=== PATIENT | male | born 1960 | race Caucasian/White ===

== ENCOUNTER 2018-08-08 09:09 | Emergency (ER) | payer SELFPAY ==
--- NOTE | 2018-08-08 10:37 | ER ---
Nurse's Notes [facility] Name: Saurav Kirkland Age: 57 yrs Sex: Male : 1960 Arrival Date: 08/08/2018 Time: 09:09 Bed 6 Private MD: Diagnosis: Presentation: 08/08 09:43 Presenting complaint: Bilateral hand numbness and tingling upon waking today. Pt hb reports mechanical fall down flight of stairs yesterday at 1800. VAN NEGATIVE. 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 Pt reports having approx 6 tall beers today, drinks a 12 pack of beer daily. Care prior to arrival: None. Mechanism of Injury: Fall. 09:43 Acuity: OLLIE 3 09:43 Method Of Arrival: Ambulatory 09:48 Trauma event details: Injury occurred in the [facility], Injury occurred: at home. Injury occurred: August 07, 2018 Injury occurred at: 18:00. Triage Assessment: 09:45 General: Appears in no apparent distress. comfortable, Behavior is cooperative, bp appropriate for age, anxious. Pain: Denies pain. EENT: No deficits noted. Neuro: Level of Consciousness is awake, alert, obeys commands, Oriented to person, place, time, situation, Appropriate for age Manufacturing Management Associate are equal bilaterally Reports TINGLING IN BILATERAL HANDS. Cardiovascular: No deficits noted. Respiratory: Airway is patent Respiratory effort is even, unlabored. GI: No signs and/or symptoms were reported involving the gastrointestinal system. : No signs and/or symptoms were reported regarding the genitourinary system. Derm: No deficits noted. Musculoskeletal: No deficits noted. Trauma Activation: Not Applicable Physician: ED Physician; Name: ; Notified At: ; Arrived At: Physician: General Surgeon; Name: ; Notified At: ; Arrived At: Physician: Radiology; Name: ; Notified At: ; Arrived At: Physician: Respiratory; Name: ; Notified At: ; Arrived At: Physician: Lab; Name: ; Notified At: ; Arrived At: Historical: - Allergies: 09:50 No Known Allergies; hb - Home Meds: 09:50 Metoprolol Tartrate Oral [Active]; Hydrochlorothiazide Oral [Active]; Lisinopril Oral hb [Active]; - PMHx: 09:50 Hypertension; CVA; hb - Immunization history:: Adult Immunizations up to date. - Social history:: Smoking status: Patient/guardian denies using tobacco. - Ebola Screening: : No symptoms or risks identified at this time. Screenin:50 Abuse screen: Denies threats or abuse. Denies injuries from another. Nutritional bp screening: No deficits noted. Tuberculosis screening: No symptoms or risk factors identified. Fall Risk Fall in past 12 months (25 points). Secondary diagnosis (15 points) CVA, No IV (0 pts). Ambulatory Aid- None/Bed Rest/Nurse Assist (0 pts). Gait- Normal/Bed Rest/Wheelchair (0 pts) Mental Status- Oriented to own ability (0 pts). Total Robbins Fall Scale indicates Low Risk Score (25-44 pts). Fall prevention measures have been instituted. Side Rails Up X 2 Placed close to Nursing Station Frequent Obs/Assesments occuring As available Patient and Family Educated on Fall Prevention Program and strategies. Assessment: 09:50 General: SEE TRIAGE NOTE. bp 10:34 Reassessment: PT ELOPED FROM FACILITY WITHOUT NOTIFYING STAFF AFTER SEEING PHYSICIAN. bp Vital Signs: 09:48 BP 159 / 93; Pulse 98; Resp 16; Temp 97.8; Pulse Ox 100% ; Weight 92.99 kg; Height 5 hb ft. 10 in. (177.80 cm); Pain 5/10; 10:25 BP 165 / 104; Pulse 88; Resp 16; Pulse Ox 96% ; bp 09:48 Body Mass Index 29.41 (92.99 kg, 177.80 cm) hb [place] Coma Score: 09:48 Eye Response: spontaneous(4). Verbal Response: oriented(5). Motor Response: obeys hb commands(6). Total: 15. Trauma Score (Adult): 09:48 Eye Response: spontaneous(1); Verbal Response: oriented(1); Motor Response: obeys hb commands(2); Systolic BP: > 89 mm Hg(4); Respiratory Rate: 10 to 29 per min(4); Herman Score: 15; Trauma Score: 12 ED Course: 09:09 Patient arrived in ED. as 09:45 Bhavin Richard MD is Attending Physician. kdr 09:48 Triage completed. hb 09:49 Arm band placed on. hb 09:50 Patient has correct armband on for positive identification. Bed in low position. Call bp light in reach. Side rails up X2. 09:51 Mart Ledezma, RN is Primary Nurse. bp 10:35 No provider procedures requiring assistance completed. Patient did not have IV access bp during this emergency room visit. Administered Medications: No medications were administered Outcome: 10:35 Eloped from patient exam room, after seeing physician Time discovered patient gone: bp August 08, 2018 at 10:35 10:36 Patient left the ED. bp Signatures: Bhavin Richard MD MD kdr Martinez, Amelia as Baxter, Heather, RN RN Mart Ledezma, RN RN bp
--- NOTE | 2018-08-09 10:37 | EDPHYS ---
Physician Documentation [facility] Name: Saurav Kirkland Age: 57 yrs Sex: Male : 1960 Arrival Date: 08/08/2018 Time: 09:09 Bed 6 Private MD: ED Physician Bhavin Richard HPI: 08/08 10:43 This 57 yrs old Male presents to ER via Ambulatory with complaints of Fall kdr Injury, Numbness Of Hand. 10:43 Details of fall: The patient fell from an upright position, while walking. Onset: The kdr symptoms/episode began/occurred gradually, 1 week(s) ago. Associated injuries: The patient sustained None - he fell and now feels that his hands are numb - more left than right. He has no other c/o. He did relate to the nursing staff that he had had six "tall boys" this morning prior to arrival. Severity of symptoms: At their worst the symptoms were very mild, in the emergency department the symptoms are unchanged. The patient has not experienced similar symptoms in the past. The patient has not recently seen a physician. Out of his medications - states he has no money to get them filled. Historical: - Allergies: 09:50 No Known Allergies; hb - Home Meds: 09:50 Metoprolol Tartrate Oral [Active]; Hydrochlorothiazide Oral [Active]; Lisinopril Oral hb [Active]; - PMHx: 09:50 Hypertension; CVA; hb - Immunization history:: Adult Immunizations up to date. - Social history:: Smoking status: Patient/guardian denies using tobacco. - Ebola Screening: : No symptoms or risks identified at this time. ROS: 10:43 Constitutional: Negative for fever, chills, and weight loss, Eyes: Negative for injury, kdr pain, redness, and discharge, ENT: Negative for injury, pain, and discharge, Neck: Negative for injury, pain, and swelling, Cardiovascular: Negative for chest pain, palpitations, and edema, Respiratory: Negative for shortness of breath, cough, wheezing, and pleuritic chest pain, Abdomen/GI: Negative for abdominal pain, nausea, vomiting, diarrhea, and constipation, Back: Negative for injury and pain, : Negative for injury, bleeding, discharge, and swelling, MS/Extremity: Negative for injury and deformity, Skin: Negative for injury, rash, and discoloration, Psych: Negative for depression, anxiety, suicide ideation, homicidal ideation, and hallucinations, Allergy/Immunology: Negative for hives, rash, and allergies, Endocrine: Negative for neck swelling, polydipsia, polyuria, polyphagia, and marked weight changes, Hematologic/Lymphatic: Negative for swollen nodes, abnormal bleeding, and unusual bruising. 10:43 Neuro: Positive for numbness, Negative for altered mental status, dizziness, gait disturbance, headache, hearing loss, loss of consciousness, seizure activity, speech changes, syncope, near syncope, tingling, tinnitus, tremor, visual changes, weakness. Exam: 10:43 Constitutional: This is a well developed, well nourished patient who is awake, alert, kdr and in no acute distress. Head/Face: Normocephalic, atraumatic. Eyes: Pupils equal round and reactive to light, extra-ocular motions intact. Lids and lashes normal. Conjunctiva and sclera are non-icteric and not injected. Cornea within normal limits. Periorbital areas with no swelling, redness, or edema. Neck: Trachea midline, no thyromegaly or masses palpated, and no cervical lymphadenopathy. Supple, full range of motion without nuchal rigidity, or vertebral point tenderness. No Meningismus. Chest/axilla: Normal chest wall appearance and motion. Nontender with no deformity. No lesions are appreciated. Cardiovascular: Regular rate and rhythm with a normal S1 and S2. No gallops, murmurs, or rubs. Normal PMI, no JVD. No pulse deficits. Respiratory: Lungs have equal breath sounds bilaterally, clear to auscultation and percussion. No rales, rhonchi or wheezes noted. No increased work of breathing, no retractions or nasal flaring. Abdomen/GI: Soft, non-tender, with normal bowel sounds. No distension or tympany. No guarding or rebound. No evidence of tenderness throughout. Back: No spinal tenderness. No costovertebral tenderness. Full range of motion. Skin: Warm, dry with normal turgor. Normal color with no rashes, no lesions, and no evidence of cellulitis. MS/ Extremity: Pulses equal, no cyanosis. Neurovascular intact. Full, normal range of motion. Neuro: Awake and alert, GCS 15, oriented to person, place, time, and situation. Cranial nerves II-XII grossly intact. Motor strength 5/5 in all extremities. Sensory grossly intact. Cerebellar exam normal. Normal gait. Psych: Awake, alert, with orientation to person, place and time. Behavior, mood, and affect are within normal limits. Vital Signs: 09:48 BP 159 / 93; Pulse 98; Resp 16; Temp 97.8; Pulse Ox 100% ; Weight 92.99 kg; Height 5 hb ft. 10 in. (177.80 cm); Pain 5/10; 10:25 BP 165 / 104; Pulse 88; Resp 16; Pulse Ox 96% ; bp 09:48 Body Mass Index 29.41 (92.99 kg, 177.80 cm) hb [place] Coma Score: 09:48 Eye Response: spontaneous(4). Verbal Response: oriented(5). Motor Response: obeys hb commands(6). Total: 15. Trauma Score (Adult): 09:48 Eye Response: spontaneous(1); Verbal Response: oriented(1); Motor Response: obeys hb commands(2); Systolic BP: > 89 mm Hg(4); Respiratory Rate: 10 to 29 per min(4); [place] Score: 15; Trauma Score: 12 MDM: 10:43 Data reviewed: vital signs, nurses notes. ED course: I asked the patient for his pill kdr bottles and took them to the desk to attempt to get him some of his medications for free or at reduced cost. While this was occurring, the patient eloped from the ED. Administered Medications: No medications were administered Disposition: 08/08/18 10:36 Patient left the facility after being seen by provider. - Patient left due to unknown. Signatures: Bhavin Richard MD MD [facility] Selina Mathur, RN RN Mart Ledezma, RN RN bp
== END 2018-08-08 10:36 | disposition left against medical advice (07) ==
LOC: ER 09:09
DX: R20.0 Anesthesia of skin (principal); I10 Essential (primary) hypertension; W19.XXXA Unspecified fall, initial encounter; Y93.89 Activity, other specified; Y92.9 Unspecified place or not applicable; Z86.73 Personal history of transient ischemic attack (TIA), and cerebral infarction without residual deficits
CPT/HCPCS: 99281

== ENCOUNTER 2018-08-14 07:43 | Emergency (ER) | payer SELFPAY ==
--- OUTSIDE RECORDS SUMMARY | 2018-08-14 07:48 | XMS REPORT | Continuity of Care Document ---
:1960 Author Organization Interface Problems Problem Status Onset Classification Date Comments Source Date Reported Open bite of 03/08/19 06/07/2017 [facility] oral cavity, Medical initial Center encounter TONGUE SWELLING Active 02/25/19 [place] [address] [facility] ANNY Active 02/25/19 [facility] BILLING 112 Medical Center HEMATOMA OF ORAL Active 02/25/19 [place] [address] [facility] Alcohol 06/07/2017 [facility] dependence with Medical withdrawal, Center unspecified Thrombocytopenia 06/07/2017 [facility] [place] Center Fatty liver, not 06/07/2017 [facility] elsewhere Medical classified Center Essential 06/07/2017 [facility] hypertension [facility] Center Obesity[facility]/07/2017 [facility] Body mass index 06/07/2017 [facility] 32.0-32.9, adult Medical Center Hypertensive 06/07/2017 [facility] urgency [facility] Center Alcoholism Resolved Problem 06/07/2017 [facility] Hypertension Resolved Problem 06/07/2017 [facility] CONTUSION OF Active [facility] ORAL CAVITY, [facility] INITIAL [facility] Center Medications Medication Details Route Status Patient Ordering Order Source Instructions Provider Date Chlordiazepoxide 25 mg, No Longer [place] Route: PO, Active [facility] Medical Q24H, Dosing Center Weight 104.091, kg, Start date: 03/02/17 3:00:00 PHOTO CARTOGRAPHER, Duration: 24 hr, Stop date: 03/02/17 3:00:00 PHOTO CARTOGRAPHER lisinopril 20 mg 20 mg=1 tab, Active [facility] oral tablet PO, Daily, # 2018 Medical 60 tab, 0 Center Refill(s) Aspirin 81 MG 81 mg, CHEW, Active [facility] Chewable Tablet Daily, # 90 2018 Medical tab, 0 Center Refill(s) Amoxicillin 875 MG 1 tab, PO, No Longer [facility] / Clavulanate 125 Q12H, # 6 Active 2017 Medical MG Oral Tablet tab, 0 Center [Augmentin 875-mg] Refill(s) NIFEdipine 60 mg 60 mg=1 tab, Active 01/11/ [facility] oral tablet, PO, Daily, # 2018 Medical extended release 60 tab, 0 Center Refill(s), Pharmacy: [place] [id number] NIFEdipine 60 mg 60 mg, 1 Inactive [place] oral tablet, tab, Route: 2018 Medical extended release PO, Drug Center form: ERTAB, Daily, Dosing Weight 107.1, kg, Start date: 03/01/17 9:00:00 PHOTO CARTOGRAPHER, Duration: 30 day, Stop date: 03/30/17 9:00:00 CSTNotes: (Same as: Adalat CC, Procardia XL) Give on empty stomach. Take 1 hour before or 2 hours after meal; "Avoid grapefruit and grapefruit juice". Do not crush Simethicone 80 mg, 1 Inactive [place] tab, Route: 2018 Medical CHEW, Drug Center form: CHEWTAB, TID, Dosing Weight 107.1, kg, PRN Gas, Start date: 03/01/17 8:15:00 PHOTO CARTOGRAPHER, Duration: 30 day, Stop date: 03/31/17 8:14:00 CSTNotes: (Same as: Mylicon) Chlordiazepoxide 50 mg, No Longer [place] Route: PO, Active 2018 Medical Q24H, Dosing Center Weight 104.091, kg, Start date: 03/01/17 3:00:00 PHOTO CARTOGRAPHER, Duration: 24 hr, Stop date: 03/01/17 3:00:00 PHOTO CARTOGRAPHER Tessalon Perles 100 mg, 1 No Longer [place] cap, Route: Active 2018 Medical PO, Drug Center form: CAP, TID, Dosing Weight 107.1, kg, PRN as needed for cough, Start date: 02/28/17 20:31:00 PHOTO CARTOGRAPHER, Duration: 30 day, Stop date: 03/30/17 20:30:00 CSTNotes: (Same As: Tessalon Perles) "Do Not Crush" Hydralazine 10 mg, 0.5 Inactive [place] mL, Route: 2018 Medical IVP, Drug Center form: INJ, ONCE, Dosing Weight 107.1, kg, Start date: 02/28/17 13:34:00 PHOTO CARTOGRAPHER, Stop date: 02/28/17 13:34:00 CSTNotes: (Same as: Apresoline) Push over 5 minutes NIFEdipine 30 mg 30 mg, 1 Inactive [place] oral tablet, tab, Route: 2018 Medical extended release PO, Drug Center form: ERTAB, ONCE, Dosing Weight 107.1, kg, Start date: 02/28/17 13:09:00 PHOTO CARTOGRAPHER, Stop date: 02/28/17 13:09:00 CSTNotes: (Same as: Adalat CC, Procardia XL) Give on empty stomach. Take 1 hour before or 2 hours after meal; "Avoid grapefruit and grapefruit juice". Do not crush Amoxicillin 875 MG 1 tab, No Longer [place] / Clavulanate 125 Route: PO, Active 2017 Medical MG Oral Tablet Drug Form: Center [Augmentin 875-mg] TAB, Dosing Weight 107.1, kg, Q12H, Start date: 02/28/17 12:00:00 PHOTO CARTOGRAPHER, Duration: 30 day, Stop date: 03/30/17 11:00:00 CSTNotes: With food. (Same as: Augmentin 875) NIFEdipine 30 mg 30 mg, 1 Inactive [place] oral tablet, tab, Route: 2018 Medical extended release PO, Drug Center form: ERTAB, Daily, Dosing Weight 107.1, kg, Start date: 02/28/17 12:00:00 PHOTO CARTOGRAPHER, Duration: 30 day, Stop date: 03/30/17 9:00:00 CSTNotes: (Same as: Adalat CC, Procardia XL) Give on empty stomach. Take 1 hour before or 2 hours after meal; "Avoid grapefruit and grapefruit juice". Do not crush tramadol 50 mg, 1 No Longer [place] hydrochloride 50 tab, Route: Active 2018 Medical MG Oral Tablet PO, Drug Center form: TAB, Q6H, Dosing Weight 107.1, kg, PRN Pain Score 4-6, Start date: 02/28/17 11:23:00 PHOTO CARTOGRAPHER, Duration: 30 day, Stop date: 03/30/17 11:22:00 CSTNotes: Not to exceed 400mg/day. (Same As: Ultram) Lorazepam 2 mg, 1 mL, No Longer [place] Route: IVP, Active 2017 Medical Drug form: Center INJ, Q2H, Dosing Weight 107.1, kg, PRN Withdrawal, Start date: 02/28/17 11:21:00 PHOTO CARTOGRAPHER, Duration: 30 day, Stop date: 03/30/17 11:20:00 CSTNotes: (Same as: Ativan) Folic Acid 1 mg, 1 tab, No Longer [place] Route: PO, Active 2017 Medical Drug form: Center TAB, Daily, Dosing Weight 107.1, kg, Start date: 02/28/17 9:00:00 PHOTO CARTOGRAPHER, Duration: 30 day, Stop date: 03/29/17 9:00:00 CSTNotes: (Same as: Folvite) Thiamine 100 mg, 1 No Longer [place] tab, Route: Active 2018 Medical PO, Drug Center form: TAB, Daily, Dosing Weight 107.1, kg, Start date: 02/28/17 9:00:00 PHOTO CARTOGRAPHER, Duration: 30 day, Stop date: 03/29/17 9:00:00 CSTNotes: (Same As: Vitamin B1) Chlordiazepoxide 50 mg, No Longer [place] Route: PO, Active 2017 Medical Q12H, Dosing Center Weight 104.091, kg, Start date: 02/28/17 9:00:00 PHOTO CARTOGRAPHER, Duration: 24 hr, Stop date: 02/28/17 21:00:00 PHOTO CARTOGRAPHER Lisinopril 20 mg, 1 No Longer [place] tab, Route: Active 2018 Medical PO, Drug Center form: TAB, Daily, Dosing Weight 107.1, kg, Start date: 02/28/17 6:43:00 PHOTO CARTOGRAPHER, Duration: 30 day, Stop date: 03/29/17 9:00:00 CSTNotes: (Same as: Prinivil, Zestril) Melatonin 6 mg, 2 tab, No Longer [place] Route: PO, Active 2017 Medical Drug form: Center TAB, Q24H, Dosing Weight 107.1, kg, Start date: 02/27/17 18:00:00 PHOTO CARTOGRAPHER, Duration: 30 day, Stop date: 03/28/17 18:00:00 CSTNotes: (Same as: Melatonin) Lisinopril 20 mg, Inactive [place] Route: PO, 2018 Medical Drug form: Center TAB, Daily, Dosing Weight 107.1, kg, Start date: 02/27/17 16:20:00 PHOTO CARTOGRAPHER, Duration: 30 day, Stop date: 03/29/17 9:00:00 PHOTO CARTOGRAPHER Valium 10 mg, 2 No Longer [facility] tab, Route: Active 2017 Medical PO, Drug Center form: TAB, Q8H-05, Dosing Weight 107.1, kg, Start date: 02/27/17 13:00:00 PHOTO CARTOGRAPHER, Duration: 3 day, Stop date: 03/02/17 5:00:00 CSTNotes: (Same as: Valium) metoprolol 25 mg, BID, No Longer [facility] tartrate 0 Refill(s) Active 2017 [facility] Aspirin 81 mg, 0 No Longer [facility] Refill(s) Active 2017 [facility] multivitamin with 1 tab, No Longer [place] minerals Route: PO, Active 2017 Medical Drug Form: Center TAB, Dosing Weight 107.1, kg, Daily, Start date: 02/27/17 12:19:00 PHOTO CARTOGRAPHER, Duration: 30 day, Stop date: 03/29/17 9:00:00 CSTNotes: (Same as:Thera-M, Theragran-M) WASTE: F/P - Black; E - Municipal Trash Bin Give with food. metoprolol 25 mg, 1 No Longer [facility] tartrate tab, Route: Active 2017 Medical PO, Drug Center form: TAB, Q12H, Dosing Weight 107.1, kg, Start date: 02/27/17 12:12:00 PHOTO CARTOGRAPHER, Duration: 30 day, Stop date: 03/29/17 9:00:00 CSTNotes: (Same as: Lopressor) Labetalol 10 mg, 2 mL, No Longer [facility] Route: IV, Active 2017 Medical Drug form: Center INJ, Q6H, Dosing Weight 107.1, kg, PRN Hypertension , Start date: 02/27/17 11:51:00 PHOTO CARTOGRAPHER, Duration: 30 day, Stop date: 03/29/17 11:50:00 PHOTO CARTOGRAPHER Lisinopril 20 mg, 1 Inactive [place] tab, Route: 2018 Medical PO, Drug Center form: TAB, Daily, Dosing Weight 107.1, kg, Start date: 02/27/17 11:51:00 PHOTO CARTOGRAPHER, Duration: 30 day, Stop date: 03/29/17 9:00:00 CSTNotes: (Same as: Prinivil, Zestril) Chlordiazepoxide 50 mg, No Longer [place] Route: PO, Active 2017 Medical Q8H, Dosing Center Weight 104.091, kg, Start date: 02/27/17 8:00:00 PHOTO CARTOGRAPHER, Duration: 24 hr, Stop date: 02/28/17 0:00:00 PHOTO CARTOGRAPHER Valium 10 mg, No Longer [place] Route: IVP, Active 2017 Medical Drug form: Center INJ, Q8Hnow, Dosing Weight 107.1, kg, Start date: 02/27/17 0:00:00 PHOTO CARTOGRAPHER, Duration: 30 day, Stop date: 03/28/17 16:00:00 PHOTO CARTOGRAPHER Vitamin B1 + 200 mg, 2 No Longer [place] Sodium Chloride mL, Route: Active 2017 Medical 0.9% IV 50 mL IVPB, Drug Center form: INJ, Q12H, Dosing Weight 107.1, kg, Start date: 02/26/17 21:00:00 PHOTO CARTOGRAPHER, Duration: 30 day, Stop date: 03/28/17 9:00:00 CSTNotes: (Same As: Vitamin B1) Ketamine 100 mg, 100 No Longer [place] mL, Rate: Active 2017 Medical Titrate, [place] Start Dose: 0.25 mg/kg/hr, Titration: DO NOT TITRATE, Goal(s): RASS 0, for alcohol withdrawal, Max Dose: 0.25 mg/kg/hr, Route: IV, Dosing Weight 107.1 kg, Total Volume: 100 For Analgesia, Start date: 02/26/17 19:01:00 CS...Notes: Total Concentratio n=1mg/ml Total Lwmand=[id number] Infusion Rate=Begin Infusion at an initial rate of 0.1mg/kg/hr to a Maximum Rate of 0.25mg/kg/hr Please place a Med Request 2 hours before the next dose is needed. Labetalol 5 mg, 1 mL, No Longer [place] Route: IVP, Active 2017 Medical Drug form: Center INJ, Q6H, Dosing Weight 107.1, kg, Start date: 02/26/17 18:00:00 PHOTO CARTOGRAPHER, Duration: 30 day, Stop date: 03/28/17 12:00:00 PHOTO CARTOGRAPHER Labetalol 5 mg, 1 mL, Inactive [facility] Route: IV, 2018 Medical Drug form: Center INJ, Q6H, Dosing Weight 107.1, kg, PRN Hypertension , Start date: 02/26/17 16:12:00 PHOTO CARTOGRAPHER, Duration: 30 day, Stop date: 03/28/17 16:11:00 PHOTO CARTOGRAPHER Valium 10 mg, 2 mL, No Longer [place] Route: IVP, Active 2018 Medical Drug form: Center INJ, Q8Hnow, Dosing Weight 107.1, kg, Start date: 02/26/17 16:00:00 PHOTO CARTOGRAPHER, Duration: 30 day, Stop date: 03/28/17 8:00:00 CSTNotes: (Same as: Valium) WASTE: F/P - Black; E - White/Blue Valium 5 mg, Route: Inactive [facility] IV, ONCE, 2018 Medical Dosing Center Weight 107.1, kg, Start date: 02/26/17 15:35:00 PHOTO CARTOGRAPHER, Stop date: 02/26/17 15:35:00 PHOTO CARTOGRAPHER Valium 5 mg, 1 mL, Inactive [facility] Route: IVP, 2018 Medical Drug form: Center INJ, Q8Hnow, Dosing Weight 107.1, kg, Start date: 02/26/17 15:00:00 PHOTO CARTOGRAPHER, Duration: 30 day, Stop date: 03/28/17 7:00:00 PHOTO CARTOGRAPHER Lorazepam 4 mg, Route: Inactive [facility] IV, ONCE, 2018 Medical Dosing Center Weight 107.1, kg, Start date: 02/26/17 14:23:00 PHOTO CARTOGRAPHER, Stop date: 02/26/17 14:23:00 PHOTO CARTOGRAPHER Thiamine 100 mg, Inactive [facility] Route: PO, 2018 Medical Daily, Center Dosing Weight 104.091, kg, Start date: 02/26/17 9:00:00 PHOTO CARTOGRAPHER, Duration: 5 day, Stop date: 03/02/17 9:00:00 PHOTO CARTOGRAPHER Folic Acid 1 mg, Route: Inactive [facility] PO, Daily, 2018 Medical Dosing Center Weight 104.091, kg, Start date: 02/26/17 9:00:00 PHOTO CARTOGRAPHER, Duration: 5 day, Stop date: 03/02/17 9:00:00 PHOTO CARTOGRAPHER multivitamin 1 tab, Inactive [facility] Route: PO, 2018 Medical Dosing Center Weight 104.091, kg, Daily, Start date: 02/26/17 9:00:00 PHOTO CARTOGRAPHER, Duration: 5 day, Stop date: 03/02/17 9:00:00 PHOTO CARTOGRAPHER Unasyn 1.5 gm, 1 No Longer [facility] ea, Route: Active 2017 Medical IVPB, Drug Center form: PDR/INJ, ABXQ6H, Dosing Weight 107.1, kg, Start date: 02/26/17 8:00:00 PHOTO CARTOGRAPHER, Duration: 3 day, Stop date: 03/01/17 2:00:00 CSTNotes: Dosing based on Ampicillin component (Same as: Unasyn) Dexamethasone 10 mg, 2.5 Inactive [facility] mL, Route: 2018 [facility] IV, Drug Center form: INJ, Q8H, Dosing Weight 107.1, kg, Start date: 02/26/17 8:00:00 PHOTO CARTOGRAPHER, Duration: 2 doses or times, Stop date: 02/26/17 16:00:00 CSTNotes: Concentratio n: 4mg/ml Chlordiazepoxide 50 mg, Inactive [facility] Route: PO, 2017 Medical Q6H, Dosing Center Weight 104.091, kg, Start date: 02/26/17 6:00:00 PHOTO CARTOGRAPHER, Duration: 24 hr, Stop date: 02/27/17 0:00:00 PHOTO CARTOGRAPHER Thiamine 100 mg, 1 Inactive [facility] mL, Route: 2017 Medical IVPB, Daily, Center Dosing Weight 107.1, kg, Start date: 02/26/17 4:14:00 PHOTO CARTOGRAPHER, Duration: 30 day, Stop date: 03/27/17 9:00:00 CSTNotes: (Same As: Vitamin B1) Folic Acid 1 mg, 0.2 No Longer [facility] mL, Route: Active 2017 Medical IVPB, Daily, Center Dosing Weight 107.1, kg, Start date: 02/26/17 4:13:00 PHOTO CARTOGRAPHER, Duration: 30 day, Stop date: 03/27/17 9:00:00 CSTNotes: (Same as: Folvite) Labetalol 20 mg, Inactive [facility] Route: IV, 2018 Medical Q4H, Dosing Center Weight 107.1, kg, Start date: 02/26/17 2:59:00 PHOTO CARTOGRAPHER, Duration: 30 day, Stop date: 03/28/17 0:00:00 PHOTO CARTOGRAPHER Lorazepam 0.5 mg, 1 No Longer [place] tab, Route: Active 2017 Medical PO, Drug Center form: TAB, Q6H, Dosing Weight 104.091, kg, PRN Agitation, Start date: 02/26/17 2:05:00 PHOTO CARTOGRAPHER, Duration: 30 day, Stop date: 03/28/17 2:04:00 CSTNotes: (Same as: Ativan) Hydralazine 10 mg, Inactive [facility] Route: IV, 2017 Medical Q6H, Dosing Center Weight 104.091, kg, PRN Hypertension , Start date: 02/26/17 1:56:00 PHOTO CARTOGRAPHER, Duration: 30 day, Stop date: 03/28/17 1:55:00 PHOTO CARTOGRAPHER Lorazepam 4 mg, 2 mL, No Longer [place] Route: IVP, Active 2017 Medical Drug form: Center INJ, Q2H, Dosing Weight 104.091, kg, PRN Other -See Comment, CIWA Score 15-20, Start date: 02/26/17 1:54:00 PHOTO CARTOGRAPHER, Duration: 30 day, Stop date: 03/28/17 1:53:00 CSTNotes: (Same as: Ativan) Labetalol 20 mg, 4 mL, Inactive [facility] Route: IVP, 2017 Medical Drug form: Center INJ, ONCE, Dosing Weight 104.091, kg, Priority: STAT, Start date: 02/26/17 0:24:00 PHOTO CARTOGRAPHER, Stop date: 02/26/17 0:24:00 PHOTO CARTOGRAPHER Dexamethasone 10 mg, 2.5 Inactive [facility] mL, Route: 2018 Medical IVP, Drug Center form: INJ, ONCE, Dosing Weight 104.091, kg, Priority: STAT, Start date: 02/26/17 0:18:00 PHOTO CARTOGRAPHER, Stop date: 02/26/17 0:18:00 CSTNotes: Concentratio n: 4mg/ml Unasyn 1.5 gm, 1 No Longer [place] ea, Route: Active 2017 Medical IVPB, Drug Center form: PDR/INJ, ONCE, Dosing Weight 104.091, kg, Priority: STAT, Start date: 02/25/17 23:50:00 PHOTO CARTOGRAPHER, Stop date: 02/25/17 23:50:00 CSTNotes: Dosing based on Ampicillin component (Same as: Unasyn) Morphine 4 mg, 1 mL, No Longer [place] Route: IVP, Active 2018 Medical Drug form: Center SOLN, ONCE, Dosing Weight 104.091, kg, Priority: STAT, Start date: 02/25/17 23:50:00 PHOTO CARTOGRAPHER, Stop date: 02/25/17 23:50:00 CSTNotes: (Same as:MORPhine Sulfate) Ondansetron 4 mg, 2 mL, Inactive [place] Route: IVP, 2017 Medical Drug form: Center INJ, ONCE, Dosing Weight 104.091, kg, Priority: STAT, Start date: 02/25/17 21:43:00 PHOTO CARTOGRAPHER, Stop date: 02/25/17 21:43:00 CSTNotes: (Same as: Zofran) MEDICATION WASTE Product Size: 4 mg Product Wasted: 0 mg Lorazepam 1 mg, 0.5 No Longer [place] mL, Route: Active 2018 Medical IVP, Drug Center form: INJ, ONCE, Dosing Weight 104.091, kg, Priority: STAT, Start date: 02/25/17 21:42:00 PHOTO CARTOGRAPHER, Stop date: 02/25/17 21:42:00 CSTNotes: (Same as: Ativan) Morphine 2 mg, 0.5 Inactive [facility] mL, Route: 2018 Medical IVP, Drug Center form: SOLN, ONCE, Dosing Weight 104.091, kg, Priority: STAT, Start date: 02/25/17 21:42:00 PHOTO CARTOGRAPHER, Stop date: 02/25/17 21:42:00 CSTNotes: (Same as:MORPhine Sulfate) Zofran 4 mg, 2 mL, Inactive [facility] Route: IVP, 2018 Medical Drug form: Center INJ, ONCE, Dosing Weight 104.091, kg, Priority: STAT, Start date: 02/25/17 19:30:00 PHOTO CARTOGRAPHER, Stop date: 02/25/17 19:30:00 CSTNotes: (Same as: Zofran) MEDICATION WASTE Product Size: 4 mg Product Wasted: ___ mg Saline Flush 0.9% 10 mL, No Longer [facility] Route: IVP, Active 2017 Medical Drug Form: Center INJ, Dosing Weight 104.091, kg, PRN, PRN Line Flush, Start date: 02/25/17 19:27:00 PHOTO CARTOGRAPHER, Duration: 30 day, Stop date: 03/27/17 19:26:00 CSTNotes: (Same as: BD Posiflush) Allergies, Adverse Reactions, Alerts Substance Category Reaction Severity Reaction Status Date Comments Source type Reported Immunizations Immunization Date Given Site Status Last Updated Comments Source Results Order Name Results Value Reference Date Interpretation Comments Source Range CHEM PANEL Phosphorus 4.1 mg/dL 2.5 - 4.5 03/[address] CHEM PANEL Magnesium Lvl 2.2 mg/dL 1.8 - 2.4 03/[address] ELECTROLYTE AGAP 14.5 meq/L 10.0 - 03/01 [facility] 20.0 [facility] ELECTROLYTE eGFR 106 03/01 Result Comment: The eGFR is calculated using the CKD-EPI formula. In most young, healthy individuals the eGFR will be > 90 mL/min/1.73m2. The eGFR declines with age. An eGFR of 60-89 may be normal in [facility] mL/min/1.7 some populations, particularly the elderly, for whom the CKD-EPI formula has not been extensively validated. Use of the eGFR is not recommended in the following populations: [address] Individuals with unstable creatinine concentrations, including patients and those with serious co-morbid conditions. Patients with extremes in muscle mass or diet. The data above are obtained from the National Kidney Disease Education Program (NKDEP) which additionally recommends that when the eGFR is used in patients with extremes of body mass index for purposes of drug dosing, the eGFR should be multiplied by the estimated BMI. ELECTROLYTE Calcium Lvl 9.2 mg/dL 8.5 - 10.5 03/01 [facility] [address] [place] [address] ELECTROLYTE Glucose Lvl 77 mg/dL 70 - 99 03/[address] ELECTROLYTE BUN 18 mg/dL 7 - 22 03/[address] ELECTROLYTE Creatinine 0.71 mg/dL 0.50 - 03/01 [facility] S Lvl 1.40 /2017 [facility] ELECTROLYTE Sodium Lvl 141 meq/L 135 - 145 03/[address] ELECTROLYTE Potassium Lvl 3.5 meq/L 3.5 - 5.1 03/[address] ELECTROLYTE CO2 25 meq/L 24 - 32 03/[address] ELECTROLYTE Chloride Lvl 105 meq/L 95 - 109 03/[address] HEMATOLOGY WBC 5.9 K/CMM 3.7 - 10.4 03/[address] HEMATOLOGY Hgb 15.2 g/dL 14.0 - 03/01 [facility] 18.0 [facility] HEMATOLOGY RBC 4.60 M/CMM 4.70 - 03/01 [facility] 6.10 [facility] HEMATOLOGY Platelet 67 K/CMM 133 - 450 03/[address] HEMATOLOGY MPV 9.9 fL 7.4 - 10.4 03/[address] HEMATOLOGY RDW 14.3 % 11.5 - 03/01 [facility] 14.5 [facility] HEMATOLOGY MCV 97.7 fL 80.0 - 03/01 [facility] 94.0 [facility] HEMATOLOGY Hct 44.9 % 42.0 - 03/01 [facility] 54.0 [facility] HEMATOLOGY MCHC 33.9 g/dL 32.0 - 03/01 [facility] 36.0 [facility] HEMATOLOGY MCH 33.2 pg 27.0 - 03/01 [facility] 31.0 [facility] HEMATOLOGY Basophils 0.1 % 0.0 - 1.0 03/[address] HEMATOLOGY Segs-Bands # 4.1 K/CMM 1.5 - 8.1 03/[address] HEMATOLOGY Eosinophils 0.9 % 0.0 - 4.0 03/[address] HEMATOLOGY Monocytes 12.8 % 2.0 - 12.0 03/[address] HEMATOLOGY Eosinophils # 0.1 K/CMM 0.0 - 0.5 03/[address] HEMATOLOGY Lymphocytes # 1.0 K/CMM 1.0 - 5.5 03/[address] HEMATOLOGY Monocytes # 0.7 K/CMM 0.0 - 0.8 03/[address] HEMATOLOGY Lymphocytes 16.4 % 20.0 - 03/01 [facility] 40.0 [facility] HEMATOLOGY Segs 69.8 % 45.0 - 03/01 [facility] 75.0 [facility] PARATHYROID Ca Ion WB 1.17 1.05 - 03/01 [facility] PROFILE mMol/L 1. [facility] PARATHYROID Ca Norm WB 1.16 1.05 - 03/01 [facility] PROFILE mMol/L 1. [facility] CHEM PANEL Bili Total 0.9 mg/dL 0.2 - 1.3 02/[address] CHEM PANEL Alk Phos 55 unit/L 39 - 136 02/[address] CHEM PANEL Albumin Lvl 2.9 g/dL 3.5 - 5.0 02/[address] CHEM PANEL Total Protein 6.8 g/dL 6.4 - 8.4 02/[address] CHEM PANEL ALT 70 unit/L 0 - 65 02/[address] CHEM PANEL AST 86 unit/L 0 - 37 02/[address] CHEM PANEL Bili Direct 0.1 mg/dL 0.0 - 0.3 02/[address] CHEM PANEL Bili Indirect 0.8 mg/dL 0.0 - 1.0 02/[address] CHEM PANEL A/G Ratio 0.7 0.7 - 1.6 02/[address] CHEM PANEL Globulin 3.9 g/dL 2.7 - 4.2 02/[address] CHEM PANEL Magnesium Lvl 2.4 mg/dL 1.8 - 2.4 02/[address] CHEM PANEL Phosphorus 4.1 mg/dL 2.5 - 4.5 02/[address] CHEM PANEL eGFR 99 02/28 Result Comment: The eGFR is calculated using the CKD-EPI formula. In most young, healthy individuals the eGFR will be >90 mL/ min/1.73m2. The eGFR declines with age. An eGFR of 60-89 may be normal in [facility] mL/min/1.7 some populations, particularly the elderly, for whom the CKD-EPI formula has not been extensively validated. Use of the eGFR is not recommended in the following populations: [address] Individuals with unstable creatinine concentrations, including patients and those with serious co-morbid conditions. Patients with extremes in muscle mass or diet. The data above are obtained from the National Kidney Disease Education Program (NKDEP) which additionally recommends that when the eGFR is used in patients with extremes of body mass index for purposes of drug dosing, the eGFR should be multiplied by the estimated BMI. CHEM PANEL Calcium Lvl 9.0 mg/dL 8.5 - 10.5 02/28 [facility] CHEM PANEL Sodium Lvl 145 meq/L 135 - 145 02/[address] CHEM PANEL AGAP 13.9 meq/L 10.0 - 02/28 20.0 [facility] CHEM PANEL Potassium Lvl 3.9 meq/L 3.5 - 5.1 02/[address] CHEM PANEL Chloride Lvl 110 meq/L 95 - 109 02/[address] CHEM PANEL CO2 25 meq/L 24 - 32 02/[address] CHEM PANEL Creatinine 0.85 mg/dL 0.50 - 02/28 [facility] Lvl 1.40 [facility] CHEM PANEL Glucose Lvl 92 mg/dL 70 - 99 02/[address] CHEM PANEL BUN 25 mg/dL 7 - 22 02/[address] HEMATOLOGY MPV 9.9 fL 7.4 - 10.4 02/[address] HEMATOLOGY Platelet 67 K/CMM 133 - 450 02/[address] HEMATOLOGY MCHC 33.8 g/dL 32.0 - 02/28 36.0 [facility] HEMATOLOGY MCH 33.0 pg 27.0 - 02/28 31.0 [facility] HEMATOLOGY RDW 14.1 % 11.5 - 02/28 14.5 [facility] HEMATOLOGY MCV 97.6 fL 80.0 - 02/28 94.0 [facility] HEMATOLOGY Hct 43.4 % 42.0 - 02/28 54.0 [facility] HEMATOLOGY Hgb 14.7 g/dL 14.0 - 02/28 [place] 18.0 [facility] HEMATOLOGY RBC 4.45 M/CMM 4.70 - 02/28 [place] 6.10 [facility] HEMATOLOGY WBC 7.9 K/CMM 3.7 - 10.4 02/28 2017 [facility] HEMATOLOGY Monocytes # 0.7 K/CMM 0.0 - 0.8 02/28 [facility]2017 [facility] HEMATOLOGY Monocytes 9.0 % 2.0 - 12.0 02/[address] HEMATOLOGY Segs-Bands # 6.7 K/CMM 1.5 - 8.1 02/[address] HEMATOLOGY Lymphocytes # 0.6 K/CMM 1.0 - 5.5 02/[address] HEMATOLOGY Lymphocytes 7.2 % 20.0 - 02/28 [place] 40.0 [facility] HEMATOLOGY Segs 83.8 % 45.0 - 02/28 [facility] 75.0 [facility] PARATHYROID Ca Norm WB 1.18 1.05 - 02/28 [facility] PROFILE mMol/L 1. [facility] PARATHYROID Ca Ion WB 1.16 1. - 02/28 [facility] PROFILE mMol/L 1. [facility] SPECIAL Hgb A1C 4.8 % <=5.6 % 02/28 [facility] [address] [place] [address] CHEM PANEL Magnesium Lvl 3.2 mg/dL 1.8 - 2.4 02/[address] CHEM PANEL eGFR 94 02/27 Result Comment: The eGFR is calculated using the CKD-EPI formula. In most young, healthy individuals the eGFR will be >90 mL/ min/1.73m2. The eGFR declines with age. An eGFR of 60-89 may be normal in [facility] mL/min/1. some populations, particularly the elderly, for whom the CKD-EPI formula has not been extensively validated. Use of the eGFR is not recommended in the following populations: [address] Individuals with unstable creatinine concentrations, including patients and those with serious co-morbid conditions. Patients with extremes in muscle mass or diet. The data above are obtained from the National Kidney Disease Education Program (NKDEP) which additionally recommends that when the eGFR is used in patients with extremes of body mass index for purposes of drug dosing, the eGFR should be multiplied by the estimated BMI. CHEM PANEL Sodium Lvl 144 meq/L 135 - 145 02/[address] CHEM PANEL Creatinine 0.92 mg/dL 0.50 - 02/27 [facility] Lvl 1.40 /2017 [facility] CHEM PANEL Chloride Lvl 111 meq/L 95 - 109 02/[address] CHEM PANEL Potassium Lvl 4.1 meq/L 3.5 - 5.1 02/[address] CHEM PANEL Calcium Lvl 10.0 mg/dL 8.5 - 10.5 02/[address] CHEM PANEL CO2 21 meq/L 24 - 32 02/[address] CHEM PANEL Glucose Lvl 138 mg/dL 70 - 99 02/[address] CHEM PANEL BUN 22 mg/dL 7 - 22 02/[address] CHEM PANEL AGAP 16.1 meq/L 10.0 - 02/27 [facility] 20.0 [facility] CHEM PANEL Phosphorus 3.6 mg/dL 2.5 - 4.5 02/[address] HEMATOLOGY Platelet 74 K/CMM 133 - 450 02/[address] HEMATOLOGY MCHC 33.8 g/dL 32.0 - 02/27 [facility] 36.0 [facility] HEMATOLOGY MPV 9.9 fL 7.4 - 10.4 02/[address] HEMATOLOGY RDW 14.1 % 11.5 - 02/27 [facility] 14.5 [facility] HEMATOLOGY MCH 32.9 pg 27.0 - 02/27 [facility] 31.0 [facility] HEMATOLOGY WBC 11.1 K/CMM 3.7 - 10.4 02/[address] HEMATOLOGY Hct 45.5 % 42.0 - 02/27 [facility] 54.0 [facility] HEMATOLOGY RBC 4.68 M/CMM 4.70 - 02/27 [place] 6.10 [facility] HEMATOLOGY MCV 97.2 fL 80.0 - 02/27 [facility] 94.0 [facility] HEMATOLOGY Hgb 15.4 g/dL 14.0 - 02/27 18.0 [facility] HEMATOLOGY Lymphocytes # 0.2 K/CMM 1.0 - 5.5 02/[address] HEMATOLOGY Segs-Bands # 9.9 K/CMM 1.5 - 8.1 02/[address] HEMATOLOGY Basophils 0.1 % 0.0 - 1.0 02/[address] HEMATOLOGY Monocytes # 0.9 K/CMM 0.0 - 0.8 02/27 [facility] HEMATOLOGY Monocytes 8.1 % 2.0 - 12.0 02/27 [facility]2017 [facility] HEMATOLOGY Lymphocytes 2.1 % 20.0 - 02/27 [facility] 40.0 [facility] HEMATOLOGY Segs 89.7 % 45.0 - 02/27 [facility] 75.0 [facility] PARATHYROID Ca Ion WB 1.08 1. - 02/27 [facility] PROFILE mMol/L 1. [facility] PARATHYROID Ca Norm WB 1.12 1.05 - 02/27 [facility] PROFILE mMol/L 1. [facility] Liver US Liver US EXAM: US LIVER LIMITED 02/26 - - [facility] This report was dictated by a Powerhouse Mechanic/Fellow. I have personally reviewed the images as Center well as the Resident's interpretation and agree with the findings. DATE: 02/26/2017 11:14 AM PHOTO CARTOGRAPHER Read by: Tabitha Gurerero MD Resident: Tabitha Guerrero MD Dictated Date/time: 02/26/17 14:55 Electronically Signed by: Jeovanny Leung MD 02/26/17 15:37 FINAL REPORT INDICATION: Elevated LFTs ADDITIONAL INFORMATION: None. COMPARISON: None. TECHNIQUE: Multiplanar grayscale and color Doppler ultrasound of the liver. FINDINGS: Liver: Craniocaudal length: 18.5 cm. Echogenicity: Hyperechoic Surface: Normal. Mass (size and location): There is a simple cystic lesion seen in the left hepatic lobe which measures 5.0 x 4.7 x 4.5 cm. Main portal vein: Caliber: 1.0 cm. Flow: Hepatopetal. Bile ducts: Common bile duct diameter: 0.38 cm. Intrahepatic ducts: Normal. Gallbladder: There is a small polyp seen along the gallbladder wall which measures 0.7 x 0.4 x 0.4 cm. Gallstones: None. Gallbladder sludge: None. Gallbladder wall: 0.24 cm. Pericholecystic fluid: None Sonographic Bernard sign: Absent. Pancreas: Head and uncinate process: Not seen. Body: Normal. Tail: Not seen. Spleen: The spleen measures 11.0 x 3.1 x 4.0 cm with no focal lesion. Free fluid: None. Other: None. IMPRESSION: 1. Hepatic steatosis. 2. Simple cystic lesion in the left hepatic lobe measuring up to 5.0 cm. 3. Small polyp in the gallbladder measuring up to 0.7 cm. ANEMIA Vitamin B12 505 pg/mL 254 - 1320 02/26 [facility] STUDY [address] [place] [address] CHEM PANEL Lactic Acid 1.4 mMol/L 0.5 - 2.2 02/26 [facility] [place] [facility] [address] [place] [address] CHEM PANEL Procalcitonin 0.47 ng/mL 0.00 - 02/26 [facility] 0.[address] [place] [address] CHEM PANEL B/C Ratio 9 6 - 25 02/[address] CHEM PANEL Globulin 3.8 g/dL 2.7 - 4.2 02/[address] CHEM PANEL A/G Ratio 1.0 0.7 - 1.6 02/[address] CHEM PANEL ALT 70 unit/L 0 - 65 02/[address] CHEM PANEL Albumin Lvl 3.7 g/dL 3.5 - 5.0 02/[address] CHEM PANEL AST 80 unit/L 0 - 37 02/[address] CHEM PANEL Total Protein 7.5 g/dL 6.4 - 8.4 02/[address] CHEM PANEL Alk Phos 74 unit/L 39 - 136 02/[address] CHEM PANEL Bili Total 1.1 mg/dL 0.2 - 1.3 02/[address] HEMATOLOGY TEG Interp Thrombelas 02/26 [facility] results [place] show shortened value of R. This finding is suggestive of enzymatic hypercoagu lation.CPT :78313 HEMATOLOGY K-time 2.9 min 1.0 - 3.0 02/[address] HEMATOLOGY R-time 4.1 min 5.0 - 10.0 02/[address] HEMATOLOGY TEG Data See Note 02/[address] (02/26/17 2:34 AM) [place] HEMATOLOGY Coag Index -0.9 -3.0-3.0 - 02/26 [facility] 3.0 [facility] HEMATOLOGY Ly30 0.1 % 0.0 - 7.5 02/26 [facility] HEMATOLOGY G-value 5.2 K d/sc 4.5 - 11.0 02/26 [facility] HEMATOLOGY Max Amp 51.1 mm 50.0 - 02/26 [place] 70.0 [facility] HEMATOLOGY Angle 58.0 53.0 - 02/26 [facility] degrees 72.0 [facility] TOXICOLOGY Ethanol Lvl null 02/26 [facility] TOXICOLOGY Etoh (%) null 02/26 [facility] CARDIAC Troponin-I 0.32 ng/mL 0.00 - 02/26 [facility] ENZYMES 0.40 [facility] BLOOD BANK Antibody Scrn Positive 1 02/26 Result Comment: 02/25/2017 20 :58 [id number] [facility] "Significant Findings of Positive Antibody Screen called to Shalini Gomez at 2054 by tl. 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 This antibody is directed against the S antigen of the "MNS" blood group system. It is typically IgG in nature and forms in response to RBC sensitizat ion via prior transfusio n. It is considered a clinically significan t antibody associated with transfusio n reactions. Should the patient require RBC transfusio n, crossmatch compatible units negative for the S antigen will be issued. Moderate difficulty in obtaining compatible blood is anticipate d since 45% of the donor population lacks the S antigen.Th e patients electronic medical record has been reviewed for relevant informatio n.I have reviewed the test results and concur with the resident's , Dr. Olmedo, interpreta tion.CPT: 93670-LO CARDIAC Troponin-I 0.40 ng/mL 0.00 - 02/26 [facility] ENZYMES 0.40 [facility] CHEM PANEL Globulin 4.3 g/dL 2.7 - 4.2 02/[address] CHEM PANEL A/G Ratio 0.9 0.7 - 1.6 02/[address] CHEM PANEL AST 120 unit/L 0 - 37 02/[address] CHEM PANEL Albumin Lvl 3.8 g/dL 3.5 - 5.0 02/[address] CHEM PANEL ALT 85 unit/L 0 - 65 02/[address] CHEM PANEL Alk Phos 83 unit/L 39 - 136 02/[address] CHEM PANEL Bili Total 1.3 mg/dL 0.2 - 1.3 02/[address] CHEM PANEL Bili Direct 0.1 mg/dL 0.0 - 0.3 02/[address] CHEM PANEL Bili Indirect 1.2 mg/dL 0.0 - 1.0 02/[address] CHEM PANEL Total Protein 8.1 g/dL 6.4 - 8.4 02/[address] HEMATOLOGY INR 0.93 0.85 - 02/26 [facility] 1.17 [facility] HEMATOLOGY PT 12.5 s 12.0 - 02/26 [facility] 14.7 [facility] HEMATOLOGY PTT 26.0 s 22.9 - 02/26 [facility] 35.8 [facility] HEMATOLOGY Basophils 0.1 % 0.0 - 1.0 02/[address] HEMATOLOGY Toxic Gran slight 02/[address] HEMATOLOGY Large Plt slight 02/[address] HEMATOLOGY RBC Morph Normal 02/[address] [place] [address] (02/25/17 7:34 PM) [place] Chest 1view Chest 1view EXAM: XR CHEST 1 VIEW 02/25 - [facility] DX DX - [facility] This report was dictated by a Powerhouse Mechanic/Fellow. I have personally reviewed the images as Center well as the Resident's interpretation and agree with the findings. DATE: 02/25/2017 7:27 PM PHOTO CARTOGRAPHER Read by: Katie Davis MD Resident: Katie Davis MD Dictated Date/time: 02/25/17 19:57 Electronically Signed by: Jefferson Palacios 02/25/17 20:09 FINAL REPORT INDICATION: - chest pain COMPARISON: Chest radiograph 02/25/2017 at 1714 TECHNIQUE: AP chest FINDINGS: Lines, tubes and hardware: None. Lungs and pleura: The inspiratory volumes are small which accounts for vascular crowding and bibasilar subsegmental atelectasis. No focal consolidation. Heart and mediastinum: The heart size is enlarged but unchanged. The mediastinal contours are normal. Bones: No acute bony abnormality is identified. IMPRESSION: Low lung volumes with vascular crowding and bibasilar subsegmental atelectasis. [place] SECTION: ER Vital Signs Vital Sign Value Date Comments Source Systolic (mm Hg) 146 03/01/2017 [facility] Diastolic (mm Hg) 93 03/01/2017 [facility] Respitory Rate 27 03/01/2017 [facility] Temperature Oral (F) 98.9 F 03/01/2017 [facility] Respitory Rate 22 03/01/2017 [facility] Systolic (mm Hg) 179 03/01/2017 [facility] Diastolic (mm Hg) 94 03/01/2017 [facility] Systolic (mm Hg) 146 03/01/2017 [facility] Diastolic (mm Hg) 81 03/01/2017 [facility] Respitory Rate 17 03/01/2017 [facility] Temperature Oral (F) 98.7 F 03/01/2017 [facility] Temperature Oral (F) 98.2 F 03/01/2017 [facility] Weight 107.1 02/26/2017 [facility] Heart Rate 79 02/26/2017 [facility] BMI Calculated 32.93 02/26/2017 [facility] Height 177.8 cm 02/26/2017 [facility] Weight 104.091 02/26/2017 [facility] Heart Rate 76 02/26/2017 [facility] Encounters Location Location Encounter Encounter Reason Attending ADM DC Status Source Details Type Number For Provider Date Date Visit [id number] [facility] Procedures Procedure Code Date Perfomer Comments Source Procedure on [id number] [place] [facility]
--- OUTSIDE RECORDS SUMMARY | 2018-08-14 07:49 | XMS REPORT | Summary of Care ---
:1960 Author Organization [facility] Address [address] [place] [id number] Encounter HQ Carol(FIN) [id number] Date(s): 02/25/17 - 03/01/[address] Professional Services provided by [facility] [place] [address]- Encounter Diagnosis Open bite of oral cavity, initial encounter (Final) - 03/07/17 Alcohol dependence with withdrawal, unspecified (Final) - Thrombocytopenia, unspecified (Final) - Fatty (change of) liver, not elsewhere classified (Final) - Essential (primary) hypertension (Final) - Obesity, unspecified (Final) - Body mass index (BMI) 32.0-32.9, adult (Final) - Hypertensive urgency (Final) - Discharge Disposition: Home or Self Care Attending Physician: Tri Dumont DO Admitting Physician: Sunitha Odonnell MD Referring Physician: Donald Vega MD Vital Signs Most recent to oldest 1 2 3 [Reference Range]: Height 177.8 cm (02/25/17 7:02 PM) Temperature Oral [96.4-99.1 98.9 DegF 98.7 DegF 98.2 DegF DegF] (03/01/17 3:26 PM) (03/01/17 11:09 AM) (03/01/17 7:37 AM) Blood Pressure [90-140/60-90 146/93 mmHg 179/94 mmHg 146/81 mmHg mmHg] *HI* *HI* *HI* (03/01/17 4:15 PM) (03/01/17 3:00 PM) (03/01/17 2:00 PM) Respiratory Rate [14-20 BRMIN] 27 BRMIN 22 BRMIN 17 BRMIN *HI* *HI* (03/01/17 2:00 PM) (03/01/17 4:15 PM) (03/01/17 3:00 PM) Peripheral Pulse Rate [60-100 79 bpm 76 bpm bpm] (02/25/17 7:35 PM) (02/25/17 7:02 PM) Weight 107.1 kg 104.091 kg (02/26/17 2:35 AM) (02/25/17 7:02 PM) Body Mass Index 32.93 m2 (02/25/17 7:02 PM) Problem List Condition Effective Dates Status Health Status Informant Alcoholism(Confirmed) Resolved Hypertension(Confirmed) Resolved Allergies, Adverse Reactions, Alerts Substance Reaction Severity Status NKDA Active Medications aspirin 81 mg, 0 Refill(s) Start Date: 02/27/17 Stop Date: 03/01/17 Status: Discontinuedaspirin 81 mg tablet, chewable 81 mg, CHEW, Daily, # 90 tab, 0 Refill(s) Start Date: 03/01/17 Status: OrderedAugmentin 875 mg oral tablet 1 tab, Route: PO, Drug Form: TAB, Dosing Weight 107.1, kg, Q12H, Start date: 12/06 12:00:00 MILK TREATER, Duration: 30 day, Stop date: 03/30/17 11:00:00 MILK TREATER Notes: With food.(Same as: Augmentin 875) Start Date: 02/28/17 Stop Date: 03/01/17 Status: DiscontinuedAugmentin 875 mg oral tablet 1 tab, PO, Q12H, # 6 tab, 0 Refill(s) Start Date: 03/01/17 Stop Date: 03/05/17 Status: CompletedchlordiazePOXIDE(Librium) 50 mg, Route: PO, Q24H, Dosing Weight 104.091, kg, Start date: 03/01/17 3:00:00 MILK TREATER, Duration: 24 hr, Stop date: 03/01/17 3:00:00 MILK TREATER Start Date: 03/01/17 Stop Date: 02/26/17 Status: CanceledchlordiazePOXIDE(Librium) 50 mg, Route: PO, Q12H, Dosing Weight 104.091, kg, Start date: 02/28/17 9:00:00 MILK TREATER, Duration: 24 hr, Stop date: 02/28/17 21:00:00 MILK TREATER Start Date: 02/28/17 Stop Date: 02/26/17 Status: CanceledchlordiazePOXIDE(Librium) 25 mg, Route: PO, Q24H, Dosing Weight 104.091, kg, Start date: 03/02/17 3:00:00 MILK TREATER, Duration: 24 hr, Stop date: 03/02/17 3:00:00 MILK TREATER Start Date: 03/02/17 Stop Date: 02/26/17 Status: CanceledchlordiazePOXIDE(Librium) 50 mg, Route: PO, Q8H, Dosing Weight 104.091, kg, Start date: 02/27/17 8:00:00 MILK TREATER, Duration: 24 hr,Stop date: 02/28/17 0:00:00 MILK TREATER Start Date: 02/27/17 Stop Date: 02/26/17 Status: CanceledchlordiazePOXIDE(Librium) 50 mg, Route: PO, Q6H, Dosing Weight 104.091, kg, Start date: 02/26/17 6:00:00 MILK TREATER, Duration: 24 hr,Stop date: 02/27/17 0:00:00 MILK TREATER Start Date: 02/26/17 Stop Date: 02/26/17 Status: Canceleddexamethasone 10 mg, 2.5 mL, Route: IV, Drug form: INJ, Q8H, Dosing Weight 107.1, kg, Start date: 02/26/17 8:00:00CST, Duration: 2 doses or times, Stop date: 02/26/17 16:00 :00 MILK TREATER Notes: Concentration: 4mg/ml Start Date: 02/26/17 Stop Date: 02/26/17 Status: Completeddexamethasone 10 mg, 2.5 mL, Route: IVP, Drug form: INJ, ONCE, Dosing Weight 104.091, kg, Priority: STAT, Start date: 02/26/17 0:18:00 MILK TREATER, Stop date: 02/26/17 0:18:00 MILK TREATER Notes: Concentration: 4mg/ml Start Date: 02/26/17 Stop Date: 02/26/17 Status: Completedfolic acid 1 mg, 1 tab, Route: PO, Drug form: TAB, Daily, Dosing Weight 107.1, kg, Start date: 02/28/17 9:00:00CST, Duration: 30 day, Stop date: 03/29/17 9:00:00 MILK TREATER Notes: (Same as: Folvite) Start Date: 02/28/17 Stop Date: 03/01/17 Status: Discontinuedfolic acid 1 mg, Route: PO, Daily, Dosing Weight 104.091, kg, Start date: 02/26/17 9:00:00 MILK TREATER, Duration: 5 day, Stop date: 03/02/17 9:00:00 MILK TREATER Start Date: 02/26/17 Stop Date: 02/26/17 Status: Canceledfolic acid 1 mg, Route: IVPB, Daily, Dosing Weight 107.1, kg, Start date: 02/26/17 9:00:00 MILK TREATER, Duration: 30 day, Stop date: 03/27/17 9:00:00 MILK TREATER Start Date: 02/26/17 Stop Date: 02/26/17 Status: Canceledfolic acid + Sodium Chloride 0.9% IV 50 mL 1 mg, 0.2 mL, Route: IVPB, Daily, Dosing Weight 107.1, kg, Start date: 02/26/17 4:13:00 MILK TREATER, Duration: 30 day, Stop date: 03/27/17 9:00:00 MILK TREATER Notes: (Same as: Folvite) Start Date: 02/26/17 Stop Date: 02/27/17 Status: DiscontinuedhydrALAZINE 10 mg, 0.5 mL, Route: IVP, Drug form: INJ, ONCE, Dosing Weight 107.1, kg, Start date: 02/28/17 13:34:00 MILK TREATER, Stop date: 02/28/17 13:34:00 MILK TREATER Notes: (Same as: Apresoline)Push over 5 minutes Start Date: 02/28/17 Stop Date: 02/28/17 Status: CompletedhydrALAZINE 10 mg, Route: IV, Q6H, Dosing Weight 104.091, kg, PRN Hypertension, Start date: 02/26/17 1:56:00 MILK TREATER, Duration: 30 day, Stop date: 03/28/17 1:55:00 MILK TREATER Start Date: 02/26/17 Stop Date: 02/26/17 Status: DiscontinuedketAMINE 100 mg in NS 100 mL (Titrate.) IV 100 mg 100 mg, 100 mL, Rate: Titrate, Start Dose: 0.25 mg/kg/hr, Titration: DO NOT TITRATE, Goal(s): RASS 0, for alcohol withdrawal, Max Dose: 0.25 mg/kg/hr, Route : IV, Dosing Weight 107.1 kg, Total Volume: 100 For Analgesia, Start date: 02/26 19:01:00 CS... Notes: Total Concentration=1mg/mlTotal [id number] Rate=Begin Infusion at an initial rate of 0.1mg/kg/hr to a Maximum Rate of 0.25mg/kg/hrPlease place a Med Request 2 hours before the next dose is needed. Start Date: 02/26/17 Stop Date: 02/27/17 Status: Discontinuedlabetalol 10 mg, 2 mL, Route: IV, Drug form: INJ, Q6H, Dosing Weight 107.1, kg, PRN Hypertension, Start date: 02/27/17 11:51:00 MILK TREATER, Duration: 30 day, Stop date: 11:50:00 MILK TREATER Start Date: 02/27/17 Stop Date: 03/01/17 Status: Discontinuedlabetalol 20 mg, Route: IV, Q4H, Dosing Weight 107.1, kg, Start date: 02/26/17 2:59:00 MILK TREATER , Duration: 30 day, Stop date: 03/28/17 0:00:00 MILK TREATER Start Date: 02/26/17 Stop Date: 02/26/17 Status: Discontinuedlabetalol 5 mg, 1 mL, Route: IV, Drug form: INJ, Q6H, Dosing Weight 107.1, kg, PRN Hypertension, Start date: 02/26/17 16:12:00 MILK TREATER, Duration: 30 day, Stop date: 16:11:00 MILK TREATER Start Date: 02/26/17 Stop Date: 02/26/17 Status: Discontinuedlabetalol 10 mg, 2 mL, Route: IV, Drug form: INJ, Q4H, Dosing Weight 107.1, kg, PRN Hypertension, Start date: 02/26/17 2:59:00 MILK TREATER, Duration: 30 day, Stop date: 09/05 2:58:00 MILK TREATER Start Date: 02/26/17 Stop Date: 02/26/17 Status: Discontinuedlabetalol 5 mg, 1 mL, Route: IVP, Drug form: INJ, Q6H, Dosing Weight 107.1, kg, Start date : 02/26/17 18:00:00 MILK TREATER, Duration: 30 day, Stop date: 03/28/17 12:00:00 MILK TREATER Start Date: 02/26/17 Stop Date: 02/27/17 Status: Discontinuedlabetalol 20 mg, 4 mL, Route: IVP, Drug form: INJ, ONCE, Dosing Weight 104.091, kg, Priority: STAT, Start date: 02/26/17 0:24:00 MILK TREATER, Stop date: 02/26/17 0:24:00 MILK TREATER Start Date: 02/26/17 Stop Date: 02/26/17 Status: Completedlisinopril 20 mg, 1 tab, Route: PO, Drug form: TAB, Daily, Dosing Weight 107.1, kg, Start date: 02/28/17 6:43:00 MILK TREATER, Duration: 30 day, Stop date: 03/29/17 9:00:00 MILK TREATER Notes: (Same as: Prinivil, Zestril) Start Date: 02/28/17 Stop Date: 03/01/17 Status: Discontinuedlisinopril 20 mg, 1 tab, Route: PO, Drug form: TAB, Daily, Dosing Weight 107.1, kg, Start date: 02/27/17 11:51:00 MILK TREATER, Duration: 30 day, Stop date: 03/29/17 9:00:00 MILK TREATER Notes: (Same as: Prinivil, Zestril) Start Date: 02/27/17 Stop Date: 02/27/17 Status: Discontinuedlisinopril 20 mg, Route: PO, Drug form: TAB, Daily, Dosing Weight 107.1, kg, Start date: 16:20:00 MILK TREATER,Duration: 30 day, Stop date: 03/29/17 9:00:00 MILK TREATER Start Date: 02/27/17 Stop Date: 02/27/17 Status: Discontinuedlisinopril 20 mg oral tablet 20 mg=1 tab, PO, Daily, # 60 tab, 0 Refill(s) Start Date: 03/01/17 Status: OrderedLORazepam 4 mg, Route: IV, ONCE, Dosing Weight 107.1, kg, Start date: 02/26/17 14:23:00 MILK TREATER, Stop date: 02/26/17 14:23:00 MILK TREATER Start Date: 02/26/17 Stop Date: 02/26/17 Status: CompletedLORazepam 1 mg, 0.5 mL, Route: IVP, Drug form: INJ, ONCE, Dosing Weight 104.091, kg, Priority: STAT, Start date: 02/25/17 21:42:00 MILK TREATER, Stop date: 02/25/17 21:42:00 MILK TREATER Notes: (Same as: Ativan) Start Date: 02/25/17 Stop Date: 02/26/17 Status: CompletedLORazepam 4 mg, 2 mL, Route: IVP, Drug form: INJ, Q2H, Dosing Weight 104.091, kg, PRN Other -See Comment, Cole 15-20, Start date: 02/26/17 1:54:00 MILK TREATER, Duration : 30 day, Stop date: 03/28/17 1:53:00 MILK TREATER Notes: (Same as: Ativan) Start Date: 02/26/17 Stop Date: 02/28/17 Status: DiscontinuedLORazepam 2 mg, 1 mL, Route: IVP, Drug form: INJ, Q2H, Dosing Weight 104.091, kg, PRN Other -See Comment, Cole 8 -14, Start date: 02/26/17 1:54:00 MILK TREATER, Duration : 30 day, Stop date: 03/28/17 1:53:00 MILK TREATER Notes: (Same as: Ativan) Start Date: 02/26/17 Stop Date: 02/28/17 Status: DiscontinuedLORazepam 6 mg, 3 mL, Route: IVP, Drug form: INJ, Q2H, Dosing Weight 104.091, kg, PRN Other -See Comment, CIWAScore > 20, Start date: 02/26/17 1:54:00 MILK TREATER, Duration: 30 day, Stop date: 03/28/17 1:53:00 MILK TREATER Notes: (Same as: Ativan) Start Date: 02/26/17 Stop Date: 02/28/17 Status: DiscontinuedLORazepam 2 mg, 1 mL, Route: IVP, Drug form: INJ, Q2H, Dosing Weight 107.1, kg, PRN Withdrawal, Start date: 02/28/17 11:21:00 MILK TREATER, Duration: 30 day, Stop date: 11/06 11:20:00 MILK TREATER Notes: (Same as: Ativan) Start Date: 02/28/17 Stop Date: 03/01/17 Status: DiscontinuedLORazepam 0.5 mg, 1 tab, Route: PO, Drug form: TAB, Q6H, Dosing Weight 104.091, kg, PRN Agitation, Start date:02/26/17 2:05:00 MILK TREATER, Duration: 30 day, Stop date: 2:04:00 MILK TREATER Notes: (Same as: Ativan) Start Date: 02/26/17 Stop Date: 03/01/17 Status: Discontinuedmelatonin 6 mg, 2 tab, Route: PO, Drug form: TAB, Q24H, Dosing Weight 107.1, kg, Start date: 02/27/17 18:00:00CST, Duration: 30 day, Stop date: 03/28/17 18:00:00 MILK TREATER Notes: (Same as: Melatonin) Start Date: 02/27/17 Stop Date: 03/01/17 Status: Discontinuedmetoprolol tartrate 25 mg, BID, 0 Refill(s) Start Date: 02/27/17 Stop Date: 03/01/17 Status: Discontinuedmetoprolol tartrate 25 mg, 1 tab, Route: PO, Drug form: TAB, Q12H, Dosing Weight 107.1, kg, Start date: 02/27/17 12:12:00 MILK TREATER, Duration: 30 day, Stop date: 03/29/17 9:00:00 MILK TREATER Notes: (Same as: Lopressor) Start Date: 02/27/17 Stop Date: 02/28/17 Status: Discontinuedmorphine Sulfate 4 mg, 1 mL, Route: IVP, Drug form: SOLN, ONCE, Dosing Weight 104.091, kg, Priority: STAT, Start date: 02/25/17 23:50:00 MILK TREATER, Stop date: 02/25/17 23:50:00 MILK TREATER Notes: (Same as:MORPhine Sulfate) Start Date: 02/25/17 Stop Date: 02/26/17 Status: Completedmorphine Sulfate 2 mg, 0.5 mL, Route: IVP, Drug form: SOLN, ONCE, Dosing Weight 104.091, kg, Priority: STAT, Start date: 02/25/17 21:42:00 MILK TREATER, Stop date: 02/25/17 21:42:00 MILK TREATER Notes: (Same as:MORPhine Sulfate) Start Date: 02/25/17 Stop Date: 02/25/17 Status: Completedmultivitamin 1 tab, Route: PO, Dosing Weight 104.091, kg, Daily, Start date: 02/26/17 9:00: 00 MILK TREATER, Duration: 5 day, Stop date: 03/02/17 9:00:00 MILK TREATER Start Date: 02/26/17 Stop Date: 02/26/17 Status: Canceledmultivitamin with minerals 1 tab, Route: PO, Drug Form: TAB, Dosing Weight 107.1, kg, Daily, Start date: 12:19:00 MILK TREATER,Duration: 30 day, Stop date: 03/29/17 9:00:00 MILK TREATER Notes: (Same as:Thera-M, Theragran-M)WASTE: F/P - Black; E - igobubble Trash Bin Give with food. Start Date: 02/27/17 Stop Date: 03/01/17 Status: DiscontinuedNIFEdipine 30 mg oral tablet, extended release 30 mg, 1 tab, Route: PO, Drug form: ERTAB, ONCE, Dosing Weight 107.1, kg, Start date: 02/28/17 13:09:00 MILK TREATER, Stop date: 02/28/17 13:09:00 MILK TREATER Notes: (Same as: Adalat CC, Procardia XL) Give on empty stomach. Take 1 hour before or 2 hours after meal; "Avoid grapefruit and grapefruit juice". Do not crush Start Date: 02/28/17 Stop Date: 02/28/17 Status: CompletedNIFEdipine 30 mg oral tablet, extended release 30 mg, 1 tab, Route: PO, Drug form: ERTAB, Daily, Dosing Weight 107.1, kg, Start date: 02/28/17 12:00:00 MILK TREATER, Duration: 30 day, Stop date: 03/30/17 9:00: 00 MILK TREATER Notes: (Same as: Adalat CC, Procardia XL) Give on empty stomach. Take 1 hour before or 2 hours after meal; "Avoid grapefruit and grapefruit juice". Do not crush Start Date: 02/28/17 Stop Date: 02/28/17 Status: DiscontinuedNIFEdipine 60 mg oral tablet, extended release 60 mg, 1 tab, Route: PO, Drug form: ERTAB, Daily, Dosing Weight 107.1, kg, Start date: 03/01/17 9:00:00 MILK TREATER, Duration: 30 day, Stop date: 03/30/17 9:00:00 MILK TREATER Notes: (Same as: Adalat CC, Procardia XL) Give on empty stomach. Take 1 hour before or 2 hours after meal; "Avoid grapefruit and grapefruit juice". Do not crush Start Date: 03/01/17 Stop Date: 03/01/17 Status: DiscontinuedNIFEdipine 60 mg oral tablet, extended release 60 mg=1 tab, PO, Daily, # 60 tab, 0 Refill(s), Pharmacy: [facility] [id number] Start Date: 03/01/17 Status: Orderedondansetron 4 mg, 2 mL, Route: IVP, Drug form: INJ, ONCE, Dosing Weight 104.091, kg, Priority: STAT, Start date:02/25/17 21:43:00 MILK TREATER, Stop date: 02/25/17 21:43:00 MILK TREATER Notes: (Same as: Zofran) MEDICATION WASTE Product Size: 4 mgProduct Wasted: 0 mg Start Date: 02/25/17 Stop Date: 02/25/17 Status: CompletedSaline Flush 0.9% 10 mL, Route: IVP, Drug Form: INJ, Dosing Weight 104.091, kg, PRN, PRN Line Flush, Start date: 02/25/17 19:27:00 MILK TREATER, Duration: 30 day, Stop date: 03/27/17 19:26:00 MILK TREATER Notes: (Same as: BD Posiflush) Start Date: 02/25/17 Stop Date: 03/01/17 Status: Discontinuedsimethicone 80 mg, 1 tab, Route: CHEW, Drug form: CHEWTAB, TID, Dosing Weight 107.1, kg, PRN Gas, Start date: 03/01/17 8:15:00 MILK TREATER, Duration: 30 day, Stop date: 8:14:00 MILK TREATER Notes: (Same as: Mylicon) Start Date: 03/01/17 Stop Date: 03/01/17 Status: DiscontinuedTessalon Perles 100 mg, 1 cap, Route: PO, Drug form: CAP, TID, Dosing Weight 107.1, kg, PRN as needed for cough, Start date: 02/28/17 20:31:00 MILK TREATER, Duration: 30 day, Stop date : 03/30/17 20:30:00 MILK TREATER Notes: (Same As: Tessalon Perles)"Do Not Crush" Start Date: 02/28/17 Stop Date: 03/01/17 Status: Discontinuedthiamine 100 mg, Route: PO, Daily, Dosing Weight 104.091, kg, Start date: 02/26/17 9:00: 00 MILK TREATER, Duration: 5 day, Stop date: 03/02/17 9:00:00 MILK TREATER Start Date: 02/26/17 Stop Date: 02/26/17 Status: Canceledthiamine 200 mg, Route: IVPB, Q12H, Dosing Weight 107.1, kg, Start date: 02/26/17 9:00: 00 MILK TREATER, Duration: 30 day, Stop date: 03/27/17 21:00:00 MILK TREATER Start Date: 02/26/17 Stop Date: 02/26/17 Status: Deletedthiamine 100 mg, 1 tab, Route: PO, Drug form: TAB, Daily, Dosing Weight 107.1, kg, Start date: 02/28/17 9:00:00 MILK TREATER, Duration: 30 day, Stop date: 03/29/17 9:00:00 MILK TREATER Notes: (Same As: Vitamin B1) Start Date: 02/28/17 Stop Date: 03/01/17 Status: Discontinuedthiamine 100 mg, Route: IVPB, Daily, Dosing Weight 107.1, kg, Start date: 02/26/17 9:00: 00 MILK TREATER, Duration: 30 day, Stop date: 03/27/17 9:00:00 MILK TREATER Start Date: 02/26/17 Stop Date: 02/26/17 Status: Canceledthiamine + Sodium Chloride 0.9% IV 49 mL 100 mg, 1 mL, Route: IVPB, Daily, Dosing Weight 107.1, kg, Start date: 02/26/17 4:14:00 MILK TREATER, Duration: 30 day, Stop date: 03/27/17 9:00:00 MILK TREATER Notes: (Same As: Vitamin B1) Start Date: 02/26/17 Stop Date: 02/26/17 Status: Discontinuedtramadol 50 mg oral tablet 50 mg, 1 tab, Route: PO, Drug form: TAB, Q6H, Dosing Weight 107.1, kg, PRN Pain Score 4-6, Start date: 02/28/17 11:23:00 MILK TREATER, Duration: 30 day, Stop date: 03/30 11:22:00 MILK TREATER Notes: Not to exceed 400mg/day. (Same As: Ultram) Start Date: 02/28/17 Stop Date: 03/01/17 Status: DiscontinuedUnasyn 1.5 gm, 1 ea, Route: IVPB, Drug form: PDR/INJ, ABXQ6H, Dosing Weight 107.1, kg, Start date: 188:00:00 MILK TREATER, Duration: 3 day, Stop date: 03/01/17 2:00:00 MILK TREATER Notes: Dosing based on Ampicillin component(Same as: Unasyn) Start Date: 02/26/17 Stop Date: 02/28/17 Status: DiscontinuedUnasyn 1.5 gm, 1 ea, Route: IVPB, Drug form: PDR/INJ, ONCE, Dosing Weight 104.091, kg, Priority: STAT, Start date: 02/25/17 23:50:00 MILK TREATER, Stop date: 02/25/17 23:50:00 MILK TREATER Notes: Dosing based on Ampicillin component(Same as: Unasyn) Start Date: 02/25/17 Stop Date: 02/26/17 Status: CompletedValium 10 mg, 2 tab, Route: PO, Drug form: TAB, Q8H-05, Dosing Weight 107.1, kg, Start date: 02/27/17 13:00:00 MILK TREATER, Duration: 3 day, Stop date: 03/02/17 5:00:00 MILK TREATER Notes: (Same as: Valium) Start Date: 02/27/17 Stop Date: 03/01/17 Status: DiscontinuedValium 10 mg, Route: IVP, Drug form: INJ, Q8Hnow, Dosing Weight 107.1, kg, Start date: 02/27/17 0:00:00 MILK TREATER, Duration: 30 day, Stop date: 03/28/17 16:00:00 MILK TREATER Start Date: 02/27/17 Stop Date: 02/26/17 Status: CanceledValium 5 mg, Route: IV, ONCE, Dosing Weight 107.1, kg, Start date: 02/26/17 15:35:00 MILK TREATER, Stop date: 02/26/17 15:35:00 MILK TREATER Start Date: 02/26/17 Stop Date: 02/26/17 Status: DiscontinuedValium 10 mg, 2 mL, Route: IVP, Drug form: INJ, Q8Hnow, Dosing Weight 107.1, kg, Start date: 02/26/17 16:00:00 MILK TREATER, Duration: 30 day, Stop date: 03/28/17 8:00:00 MILK TREATER Notes: (Same as: Valium)WASTE: F/P - Black; E - White/Blue Start Date: 02/26/17 Stop Date: 02/27/17 Status: DiscontinuedValium 5 mg, 1 mL, Route: IVP, Drug form: INJ, Q8Hnow, Dosing Weight 107.1, kg, Start date: 02/26/17 15:00:00 MILK TREATER, Duration: 30 day, Stop date: 03/28/17 7:00:00 MILK TREATER Start Date: 02/26/17 Stop Date: 02/26/17 Status: DiscontinuedVitamin B1 + Sodium Chloride 0.9% IV 50 mL 200 mg, 2 mL, Route: IVPB, Drug form: INJ, Q12H, Dosing Weight 107.1, kg, Start date: 02/26/17 21:00:00 MILK TREATER, Duration: 30 day, Stop date: 03/28/17 9:00:00 MILK TREATER Notes: (Same As: Vitamin B1) Start Date: 02/26/17 Stop Date: 02/27/17 Status: DiscontinuedZofran 4 mg, 2 mL, Route: IVP, Drug form: INJ, ONCE, Dosing Weight 104.091, kg, Priority: STAT, Start date:02/25/17 19:30:00 MILK TREATER, Stop date: 02/25/17 19:30:00 MILK TREATER Notes: (Same as: Zofran) MEDICATION WASTE Product Size: 4 mgProduct Wasted: ___ mg Start Date: 02/25/17 Stop Date: 02/25/17 Status: Completed Results BLOOD BANK RESULTS Most recent to oldest [Reference Range]: 1 2 3 ABO/Rh O POS *Unknown* (02/25/17 7:34 PM) Antibody Scrn Positive 1 (02/25/17 7:34 PM) AB Int Anti-S *Unknown* (02/25/17 7:34 PM) Path AB Transfusion Medicine Physician Services The patient is a 56 y/o M with a medical history of HTN who presents for difficulty speaking and swallowing and was found to have a swollen tongue. An anti-S antibody is detected in this patient s serum. This antibody is directed against the S antigen of the "MNS" blood group system. It is typically IgG in nature and forms in response to RBC sen sitization via prior transfusion. It is considered a clinically significant antibody associated with transfusion reactions. Should the patient require RBC transfusion, crossmatch compatible units negative for the S antigen will be issued. Moderate difficulty in obtaining compatible blood is anticipated since 45% of the donor population lacks the S antigen. The patient s electronic medical record has been reviewed for relevant information. I have reviewed the test results and concur with the resident's, Dr. Olmedo, interpretation. CPT: 77381-HG *NA* (02/25/17 7:34 PM) 1Result Comment: 02/25/2017 20:58 [id number] "Significant Findings of Positive Antibody Screen called to Shalini Gomez at 2054 by tl. Read Back OK"ELECTROLYTES Most recent to oldest 1 2 3 [Reference Range]: Sodium Lvl [135-145 mEq/L] 141 mEq/L 145 mEq/L 144 mEq/L (03/01/17 3:50 AM) (02/28/17 3:36 AM) (02/27/17 4:15 AM) Potassium Lvl [3.5-5.1 mEq/L] 3.5 mEq/L 3.9 mEq/L 4.1 mEq/L (03/01/17 3:50 AM) (02/28/17 3:36 AM) (02/27/17 4:15 AM) Chloride Lvl [95-109 mEq/L] 105 mEq/L 110 mEq/L 111 mEq/L (03/01/17 3:50 AM) *HI* *HI* (02/28/17 3:36 AM) (02/27/17 4:15 AM) CO2 [24-32 mEq/L] 25 mEq/L 25 mEq/L 21 mEq/L (03/01/17 3:50 AM) (02/28/17 3:36 AM) *LOW* (02/27/17 4:15 AM) AGAP [10.0-20.0 mEq/L] 14.5 mEq/L 13.9 mEq/L 16.1 mEq/L (03/01/17 3:50 AM) (02/28/17 3:36 AM) (02/27/17 4:15 AM) CHEM PANEL Most recent to oldest 1 2 3 [Reference Range]: Creatinine Lvl [0.50-1.40 0.71 mg/dL 0.85 mg/dL 0.92 mg/dL mg/dL] (03/01/17 3:50 AM) (02/28/17 3:36 AM) (02/27/17 4:15 AM) eGFR 106 mL/min/1.73m2 1 99 mL/min/1.73m2 2 94 mL/min/1.73m2 3 *NA* *NA* *NA* (03/01/17 3:50 AM) (02/28/17 3:36 AM) (02/27/17 4:15 AM) BUN [7-22 mg/dL] 18 mg/dL 25 mg/dL 22 mg/dL (03/01/17 3:50 AM) *HI* (02/27/17 4:15 AM) (02/28/17 3:36 AM) B/C Ratio [6-25] 9 (02/26/17 2:34 AM) Glucose Lvl [70-99 mg/dL] 77 mg/dL 92 mg/dL 138 mg/dL (03/01/17 3:50 AM) (02/28/17 3:36 AM) *HI* (02/27/17 4:15 AM) Total Protein [6.4-8.4 g/dL] 6.8 g/dL 7.5 g/dL 8.1 g/dL (02/28/17 3:36 AM) (02/26/17 2:34 AM) (02/25/17 7:34 PM) Albumin Lvl [3.5-5.0 g/dL] 2.9 g/dL 3.7 g/dL 3.8 g/dL *LOW* (02/26/17 2:34 AM) (02/25/17 7:34 PM) (02/28/17 3:36 AM) Globulin [2.7-4.2 g/dL] 3.9 g/dL 3.8 g/dL 4.3 g/dL (02/28/17 3:36 AM) (02/26/17 2:34 AM) *HI* (02/25/17 7:34 PM) A/G Ratio [0.7-1.6] 0.7 1.0 0.9 (02/28/17 3:36 AM) (02/26/17 2:34 AM) (02/25/17 7:34 PM) Calcium Lvl [8.5-10.5 mg/dL] 9.2 mg/dL 9.0 mg/dL 10.0 mg/dL (03/01/17 3:50 AM) (02/28/17 3:36 AM) (02/27/17 4:15 AM) Phosphorus [2.5-4.5 mg/dL] 4.1 mg/dL 4.1 mg/dL 3.6 mg/dL (03/01/17 3:50 AM) (02/28/17 3:36 AM) (02/27/17 4:15 AM) Magnesium Lvl [1.8-2.4 mg/dL] 2.2 mg/dL 2.4 mg/dL 3.2 mg/dL (03/01/17 3:50 AM) (02/28/17 3:36 AM) *HI* (02/27/17 4:15 AM) ALT [0-65 unit/L] 70 unit/L 70 unit/L 85 unit/L *HI* *HI* *HI* (02/28/17 3:36 AM) (02/26/17 2:34 AM) (02/25/17 7:34 PM) AST [0-37 unit/L] 86 unit/L 80 unit/L 120 unit/L *HI* *HI* *HI* (02/28/17 3:36 AM) (02/26/17 2:34 AM) (02/25/17 7:34 PM) Alk Phos [39-136 unit/L] 55 unit/L 74 unit/L 83 unit/L (02/28/17 3:36 AM) (02/26/17 2:34 AM) (02/25/17 7:34 PM) Bili Total [0.2-1.3 mg/dL] 0.9 mg/dL 1.1 mg/dL 1.3 mg/dL (02/28/17 3:36 AM) (02/26/17 2:34 AM) (02/25/17 7:34 PM) Bili Direct [0.0-0.3 mg/dL] 0.1 mg/dL 0.1 mg/dL (02/28/17 3:36 AM) (02/25/17 7:34 PM) Bili Indirect [0.0-1.0 mg/dL] 0.8 mg/dL 1.2 mg/dL (02/28/17 3:36 AM) *HI* (02/25/17 7:34 PM) Lactic Acid Lvl [0.5-2.2 1.4 mMol/L mMol/L] (02/26/17 2:34 AM) Procalcitonin Lvl [0.00-0.10 0.47 ng/mL ng/mL] *HI* (02/26/17 2:34 AM) 1Result Comment: The eGFR is calculated using the CKD-EPI formula. In most young , healthy individualsthe eGFR will be >90 mL/min/1.73m2. The eGFR declines with age. An eGFR of 60-89 may be normal insome populations, particularly the elderly, for whom the CKD-EPI formula has not been extensively validated. Use of the eGFR is not recommended in the following populations: Individuals with unstable creatinine concentrations, including patients and those with serious co-morbid conditions. Patients with extremes in muscle mass or diet. The data above are obtained from the [employer] ( [employer]) which additionally recommends that when the eGFR is used in patients with extremes of body mass index for purposesof drug dosing, the eGFR should be multiplied by the estimated BMI.2Result Comment: The eGFR is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
[2018-08-14 08:44] LABS: Absolute Lymphocytes (CBC) 0.5 K/uL (0.7-4.9); Basophils % 0.5 % (0-1.3); Eosinophils % 0.6 % (0-4.4); Hematocrit 46.4 % (39.6-49.0); Lymphocytes % 10.7 % (15.3-44.8); MPV 9.6 fL (7.6-11.3); Monocytes % 15.1 % (3.3-12.3); RBC Red Blood Cell Count 4.87 M/uL (4.33-5.43)
[2018-08-14 08:48] LABS: Protime INR 1.02
[2018-08-14 08:57] LABS: Barbiturates NEGATIVE (NEGATIVE); Benzodiazepines NEGATIVE (NEGATIVE); Cocaine NEGATIVE (NEGATIVE); METHAMPHETAM NEGATIVE (NEGATIVE); Methadone NEGATIVE (NEGATIVE); Opiates NEGATIVE (NEGATIVE); Phencyclidine NEGATIVE (NEGATIVE); THC Cannibis NEGATIVE (NEGATIVE)
[2018-08-14 09:05] LABS: ALT/SGPT 116 U/L (12-78); AST/SGOT 91 U/L (15-37); Albumin 3.9 g/dL (3.4-5.0); Alkaline Phosphatase 64 U/L (45-117); BUN Blood Urea Nitrogen 4 mg/dL (7-18); Bicarbonate 24 mmol/L (21-32); Bilirubin Direct 0.1 mg/dL (0-0.2); Bilirubin Total 0.7 mg/dL (0.2-1.0); Glucose Level 110 mg/dL (74-106); Potassium 4.1 mmol/L (3.5-5.1); Protein, Total 7.8 g/dL (6.4-8.2); Sodium Level 140 mmol/L (136-145)
[2018-08-14 09:08] LABS: Urine Blood NEGATIVE (NEG); Urine Glucose NEGATIVE (NEG); Urine Protein TRACE (NEG); Urine pH 5.5 (5.0-7.0)
--- NOTE | 2018-08-14 09:56 | EDPHYS ---
Physician Documentation [facility] Name: Saurav Kirkland Age: 57 yrs Sex: Male : 1960 Arrival Date: 08/14/2018 Time: 07:43 Bed 17 Private MD: ED Physician Robert Ferraro HPI: 08/14 11:54 This 57 yrs old Male presents to ER via Ambulatory with complaints of kdr Suicidal Ideation. 11:54 The patient presents to the emergency department with depression, The patient can't kdr stop drinking and has been unable to work. Last drink was midnight. States that he has been thinking about killing himself - no specific plan but states that if he had a gun he would shoot himself in the head or has considered jumping off one of the local bridges.. Onset: The symptoms/episode began/occurred at an unknown time. Past psychiatric history: Prior diagnosis: depression. Associated signs and symptoms: Pertinent positives; substance abuse, suicide ideation. Severity of symptoms: At their worst the symptoms were mild moderate just prior to arrival, in the emergency department the symptoms are unchanged. The patient has not experienced similar symptoms in the past. The patient has not recently seen a physician. 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 - Social history:: Smoking status: Patient/guardian denies using tobacco, Patient uses alcohol, on a daily basis. - Ebola Screening: : No symptoms or risks identified at this time. ROS: 11:54 Constitutional: Negative for fever, chills, and weight loss, Eyes: Negative for injury, kdr pain, redness, and discharge, ENT: Negative for injury, pain, and discharge, Neck: Negative for injury, pain, and swelling, Cardiovascular: Negative for chest pain, palpitations, and edema, Respiratory: Negative for shortness of breath, cough, wheezing, and pleuritic chest pain, Abdomen/GI: Negative for abdominal pain, nausea, vomiting, diarrhea, and constipation, Back: Negative for injury and pain, : Negative for injury, bleeding, discharge, and swelling, MS/Extremity: Negative for injury and deformity, Skin: Negative for injury, rash, and discoloration, Neuro: Negative for headache, weakness, numbness, tingling, and seizure activity. Allergy/Immunology: Negative for hives, rash, and allergies, Endocrine: Negative for neck swelling, polydipsia, polyuria, polyphagia, and marked weight changes, Hematologic/Lymphatic: Negative for swollen nodes, abnormal bleeding, and unusual bruising. 11:54 Psych: Positive for depression, alcohol dependence, suicidal ideation. Exam: 11:54 Constitutional: This is a well developed, well nourished patient who is awake, alert, kdr and in no acute distress. Head/Face: Normocephalic, atraumatic. Eyes: Pupils equal round and reactive to light, extra-ocular motions intact. Lids and lashes normal. Conjunctiva and sclera are non-icteric and not injected. Cornea within normal limits. Periorbital areas with no swelling, redness, or edema. Neck: Trachea midline, no thyromegaly or masses palpated, and no cervical lymphadenopathy. Supple, full range of motion without nuchal rigidity, or vertebral point tenderness. No Meningismus. Chest/axilla: Normal chest wall appearance and motion. Nontender with no deformity. No lesions are appreciated. Cardiovascular: Regular rate and rhythm with a normal S1 and S2. No gallops, murmurs, or rubs. Normal PMI, no JVD. No pulse deficits. Respiratory: Lungs have equal breath sounds bilaterally, clear to auscultation and percussion. No rales, rhonchi or wheezes noted. No increased work of breathing, no retractions or nasal flaring. Abdomen/GI: Soft, non-tender, with normal bowel sounds. No distension or tympany. No guarding or rebound. No evidence of tenderness throughout. Back: No spinal tenderness. No costovertebral tenderness. Full range of motion. Skin: Warm, dry with normal turgor. Normal color with no rashes, no lesions, and no evidence of cellulitis. MS/ Extremity: Pulses equal, no cyanosis. Neurovascular intact. Full, normal range of motion. 11:54 Neuro: Orientation: is normal, appropriate for stated age, Mentation: appropriate for stated age, Memory: appropriate for stated age, Cranial nerves: no acute changes, Cerebellar function: Motor: no acute changes, moves all fours, slight tremor. 11:54 Psych: Behavior/mood is pleasant, cooperative, suicidal, depressed, Affect is flat, Oriented to person, place, time, Not oriented to Vital Signs: 07:53 BP 203 / 100; Pulse 92; Resp 18 S; Temp 98.2(O); Pulse Ox 96% on R/A; Height 5 ft. 10 aa5 in. (177.80 cm) (R); 07:56 Weight 111.49 kg (M); aa5 10:22 BP 163 / 95; Pulse 86; Resp 16; Pulse Ox 98% on R/A; iw 14:00 BP 159 / 90; Pulse 73; Resp 18; Temp 98.1(O); Pulse Ox 97% on R/A; Pain 0/10; dh3 18:00 BP 162 / 90; Pulse 97; Resp 18; Temp 98.0(O); Pulse Ox 97% on R/A; Pain 0/10; dh3 20:07 BP 159 / 87; Pulse 67; Resp 18; Temp 97.9(O); Pulse Ox 97% on R/A; mw2 08/15 00:10 BP 148 / 71; Pulse 75; Resp 20; Temp 97.5; Pulse Ox 98% ; Pain 0/10; sr6 04:16 BP 144 / 80; Pulse 62; Resp 18; Temp 97.6; Pulse Ox 98% ; Pain 0/10; sr6 08/14 07:56 Body Mass Index 35.27 (111.49 kg, 177.80 cm) aa5 MDM: 08/14 09:54 Patient medically screened. kdr 11:54 Data reviewed: vital signs, nurses notes, lab test result(s), radiologic studies. kdr Counseling: I had a detailed discussion with the patient and/or guardian regarding: the historical points, exam findings, and any diagnostic results supporting the discharge/admit diagnosis, lab results, radiology results, the need to transfer to another facility. 17:17 ED course: The patient continues to be stable in the ED. He was given an additional kdr dose of Librium recently but has otherwise not required any other acute management. 08/15 02:17 ED course: sleeping comfortably, no distress, awaiting transfer for suicidal ideations..rn 02:39 ED course: Accepted for transfer to [facility].. rn 08/14 07:47 Order name: Acetaminophen kdr 08/14 07:47 Order name: Basic Metabolic Panel; Complete Time: 09:52 kdr 08/14 07:47 Order name: CBC with Diff; Complete Time: 16:17 kdr 08/14 07:47 Order name: ETOH Level; Complete Time: 09:52 kdr 08/14 07:47 Order name: Hepatic Function; Complete Time: 09:52 kdr 08/14 07:47 Order name: PT-INR; Complete Time: 09:52 kdr 08/14 07:47 Order name: Ptt, Activated; Complete Time: 09:52 kdr 08/14 07:47 Order name: Salicylate; Complete Time: 09:52 kdr 08/14 07:47 Order name: Urine Drug Screen; Complete Time: 09:52 kdr 08/14 07:49 Order name: Acetaminophen Level; Complete Time: 09:52 EDMS 08/14 08:41 Order name: Urine Dipstick--Ancillary (enter results); Complete Time: 09:52 ms 08/14 12:19 Order name: Manual Differential; Complete Time: 16:17 EDMS 08/14 07:47 Order name: IV Saline Lock; Complete Time: 08:27 kdr 08/14 07:47 Order name: Labs collected and sent; Complete Time: 08:27 kdr 08/14 07:47 Order name: Urine Dipstick-Ancillary (obtain specimen); Complete Time: 08:28 kdr 08/14 11:14 Order name: Diet Regular; Complete Time: 11:15 dh3 08/14 16:34 Order name: Diet Regular; Complete Time: 16:35 dh3 Administered Medications: 08/14 10:30 Drug: Librium - chlordiazePOXIDE 50 mg Route: PO; iw 15:59 Follow up: Response: No adverse reaction ph 10:30 Drug: Lopressor (metoprolol TARTRATE) 50 mg Route: PO; iw 15:59 Follow up: Response: No adverse reaction; Blood pressure is lowered ph 10:45 Drug: NS 0.9% 500 ml Route: IV; Rate: bolus; Site: left hand; iw 11:30 Follow up: Response: No adverse reaction; IV Status: Completed infusion; IV Intake: ph 500ml 11:15 Drug: Banana Bag - (NS 0.9% 1000 ml, foLIC Acid 1 mg, Thiamine 100 mg, Multivitamin 1 iw amp) Route: IV; Rate: calculated rate; Site: left hand; 15:58 Follow up: Response: No adverse reaction; IV Status: Completed infusion; IV Intake: ph 1000ml 16:40 Drug: Librium - chlordiazePOXIDE 50 mg Route: PO; ph 18:45 Follow up: Response: No adverse reaction ph 16:40 Drug: Zofran 4 mg Route: IVP; Site: left hand; ph 18:44 Follow up: Response: No adverse reaction; Nausea is decreased ph 16:40 Drug: Pepcid 20 mg Route: IVP; Site: left hand; ph 18:44 Follow up: Response: No adverse reaction ph Disposition: 08/14/18 09:54 Transfer ordered to Psych Facility. Diagnosis are Depression w/ SI, Alcohol abuse, Alcohol abuse with intoxication, Alcohol abuse with other alcohol-induced disorder. - Reason for transfer: Higher level of care. - Accepting physician is Psych MD. - Condition is Fair. - Problem is an ongoing problem. - Symptoms have improved. Signatures: Dispatcher [employer] EDMS Bhavin Richard MD MD kdr Estefania Luna RN RN iw Robert Ferraro MD MD rn Paz Lao RN RN aa5 Fely Flores RN RN Khurram Sigala RN RN ao Corrections: (The following items were deleted from the chart) 08/15 05:36 08/14 09:54 08/14/2018 09:54 Transfer ordered to Psych Facility. Diagnosis is ao Depression w/ SI; Alcohol abuse; Alcohol abuse with intoxication; Alcohol abuse with other alcohol-induced disorder. Reason for transfer: Higher level of care. Accepting physician is Psych . Condition is Fair. Problem is an ongoing problem. Symptoms have improved. kdr
--- NOTE | 2018-08-14 09:56 | ER ---
Nurse's Notes [facility] Name: Saurav Kirkland Age: 57 yrs Sex: Male : 1960 Arrival Date: 08/14/2018 Time: 07:43 Bed 17 Private MD: Diagnosis: Depression w/ SI;Alcohol abuse;Alcohol abuse with intoxication;Alcohol abuse with other alcohol-induced disorder Presentation: 08/14 07:48 Presenting complaint: Patient states: "I've been having suicidal thoughts for while aa5 now". Pt reports plan is to "have a gun and kill myself [place] Pt states "I called the crisis line and they told me to come to the ER". Pt states "I am homeless and I drink everyday". Pt states "I drink whatever I can find but mostly beer". Transition of care: patient was not received from another setting of care. Onset of symptoms was August 14, 2018. Risk Assessment: Do you want to hurt yourself or someone else? Patient reports desire/thoughts of hurting themselves or someone else. Provider notified. Initial Sepsis Screen: Does the patient meet any 2 criteria? No. Patient's initial sepsis screen is negative. Does the patient have a suspected source of infection? No. Patient's initial sepsis screen is negative. Care prior to arrival: None. 07:48 Acuity: OLLIE 2 aa5 07:48 Method Of Arrival: Ambulatory aa5 Triage Assessment: 08:37 General: Appears. 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 - Social history:: Smoking status: Patient/guardian denies using tobacco, Patient uses alcohol, on a daily basis. - Ebola Screening: : No symptoms or risks identified at this time. Screenin:36 Abuse screen: Denies threats or abuse. Denies injuries from another. Nutritional ph screening: No deficits noted. Tuberculosis screening: No symptoms or risk factors identified. Fall Risk None identified. Assessment: 08:15 General: Appears in no apparent distress. comfortable, obese, Behavior is calm, ph cooperative, appropriate for age. Pain: Denies pain. Neuro: Level of Consciousness is awake, alert, obeys commands, Oriented to person, place, time, situation. Cardiovascular: Capillary refill < 3 seconds in bilateral fingers Patient's skin is warm and dry. Respiratory: Airway is patent Respiratory effort is even, unlabored, Respiratory pattern is regular, symmetrical. GI: Abdomen is round non-distended, Patient currently denies abdominal pain, diarrhea, nausea, vomiting. Derm: Skin is intact, Skin is pink, warm \\T\\ dry. Musculoskeletal: Circulation, motion, and sensation intact. Range of motion: intact in all extremities. 08:36 Reassessment: Dr Richard at bedside. ph 09:00 Reassessment: Patient appears in no apparent distress at this time. Patient and/or ph family updated on plan of care and expected duration. Pain level reassessed. Patient is alert, oriented x 3, equal unlabored respirations, skin warm/dry/pink. Pt eating breakfast, tolerating well. 10:00 Reassessment: Patient appears in no apparent distress at this time. Patient and/or ph family updated on plan of care and expected duration. Pain level reassessed. Patient is alert, oriented x 3, equal unlabored respirations, skin warm/dry/pink. 11:15 Reassessment: Patient appears in no apparent distress at this time. Patient and/or iw family updated on plan of care and expected duration. Pain level reassessed. Patient is alert, oriented x 3, equal unlabored respirations, skin warm/dry/pink. Patient denies pain at this time. 12:15 Reassessment: Patient appears in no apparent distress at this time. Patient and/or ph family updated on plan of care and expected duration. Pain level reassessed. Patient is alert, oriented x 3, equal unlabored respirations, skin warm/dry/pink. Pt eating lunch, tolerating well, awaiting transfer to mental health facility. 13:12 Reassessment: Patient appears in no apparent distress at this time. Patient and/or iw family updated on plan of care and expected duration. Pain level reassessed. Patient is alert, oriented x 3, equal unlabored respirations, skin warm/dry/pink. pt sitting up in bed, requesting to updated his contact info, registration notified. 14:00 Reassessment: Patient appears in no apparent distress at this time. Patient and/or ph family updated on plan of care and expected duration. Pain level reassessed. Patient is alert, oriented x 3, equal unlabored respirations, skin warm/dry/pink. 15:00 Reassessment: Patient appears in no apparent distress at this time. Patient and/or ph family updated on plan of care and expected duration. Pain level reassessed. Patient is alert, oriented x 3, equal unlabored respirations, skin warm/dry/pink. 15:57 Reassessment: Patient appears in no apparent distress at this time. Patient and/or ph family updated on plan of care and expected duration. Pain level reassessed. Patient is alert, oriented x 3, equal unlabored respirations, skin warm/dry/pink. 16:20 Reassessment: Patient appears in no apparent distress at this time. Patient is alert, ph oriented x 3, equal unlabored respirations, skin warm/dry/pink. Pt c/o of ETOH withdrawal symptoms, nausea, diarrhea and shaking, ERP notified, see MAR. 19:10 General: Appears in no apparent distress. comfortable, Behavior is calm, cooperative, ao appropriate for age. Pain: Denies pain. Neuro: Level of Consciousness is awake, alert, obeys commands, Oriented to person, place, time, situation, Moves all extremities. Full function Speech is normal, Facial symmetry appears normal. Cardiovascular: Capillary refill < 3 seconds in bilateral fingers Patient's skin is warm and dry. Respiratory: Airway is patent Respiratory effort is even, unlabored, Respiratory pattern is regular, symmetrical. GI: Abdomen is round non-distended. : No deficits noted. No signs and/or symptoms were reported regarding the genitourinary system. EENT: No signs and/or symptoms were reported regarding the EENT system. Derm: Skin is intact, Skin is pink, warm \\T\\ dry. normal, Skin temperature is warm. Musculoskeletal: Circulation, motion, and sensation intact. Range of motion: intact in all extremities. 21:45 Reassessment: Patient appears in no apparent distress at this time. Patient and/or ao family updated on plan of care and expected duration. Pain level reassessed. Patient is alert, oriented x 3, equal unlabored respirations, skin warm/dry/pink. Patient resting in bed with no SS of distress. 23:50 Reassessment: Patient appears in no apparent distress at this time. Patient and/or ao family updated on plan of care and expected duration. Pain level reassessed. Patient sleeping with no SS of distress. 08/15 02:49 Reassessment: Patient appears in no apparent distress at this time. Patient and/or ao family updated on plan of care and expected duration. Pain level reassessed. Patient sleeping with no SS of distress. Waiting on [facility] acceptance. Psych: 08/14 08:15 Subjective: Patient's mood is sad, hopeless, Delusions are denied, Hallucinations are ph denied Having thoughts of suicide. Plan for suicide is plans to shot himself or jump off a large bridge. Objective: Patient is cooperative, Speech is soft, Affect is flat. Interventions: Removed personal items and placed in bag. Patient placed in hospital gown. Searched person for dangerous items. Urine collected and sent for urine drug test. Suicide Risk Assessment: Sad Person Scale: Sex of patient: Male: Score 1 point. Age of patient: Score 0 point if patient falls outside of specified age parameters. Depression: Score 1 point if signs of depression are present. Previous Attempt: Score 0 point if patient has not previously attempted suicide. Substance Abuse: Score 1 point if patient abuses alcohol or drugs. Rational Thinking: Score 0 point if patient has rational thinking. Social Support: Score 1 point if social support is lacking and/or unavailable. Organized Plan: Score 1 point if patient had a plan in place. Relationship: Score 1 point if patient is , , , or for a single male Chronic Sickness: Score 1 point if patient has illness, chronic, debilitating, or severe. TOTAL POINTS: If total points are 7-10, the proposed clinical action is to hospitalize or commit. Implement suicide precautions. Safety Checks: Personal items have been removed. Door is open. No visitors are present at this time. Patient uses 12 pack of beer, daily. Last use was midnight last night. Patient does not have a history of DTs. Commitment: Patient will be a voluntary commitment. Vital Signs: 07:53 BP 203 / 100; Pulse 92; Resp 18 S; Temp 98.2(O); Pulse Ox 96% on R/A; Height 5 ft. 10 aa5 in. (177.80 cm) (R); 07:56 Weight 111.49 kg (M); aa5 10:22 BP 163 / 95; Pulse 86; Resp 16; Pulse Ox 98% on R/A; iw 14:00 BP 159 / 90; Pulse 73; Resp 18; Temp 98.1(O); Pulse Ox 97% on R/A; Pain 0/10; dh3 18:00 BP 162 / 90; Pulse 97; Resp 18; Temp 98.0(O); Pulse Ox 97% on R/A; Pain 0/10; dh3 20:07 BP 159 / 87; Pulse 67; Resp 18; Temp 97.9(O); Pulse Ox 97% on R/A; mw2 08/15 00:10 BP 148 / 71; Pulse 75; Resp 20; Temp 97.5; Pulse Ox 98% ; Pain 0/10; sr6 04:16 BP 144 / 80; Pulse 62; Resp 18; Temp 97.6; Pulse Ox 98% ; Pain 0/10; sr6 08/14 07:56 Body Mass Index 35.27 (111.49 kg, 177.80 cm) aa5 ED Course: 08/14 07:43 Patient arrived in ED. as 07:47 Bhavin Richard MD is Attending Physician. kdr 07:48 Arm band placed on. aa5 07:48 Safety checks: Items removed: yes. Door open/sign placed on door: yes. Family/friend dh3 present: no. Sitter present: Yes. 07:51 Triage completed. aa5 07:55 Fely Flores, RN is Primary Nurse. ph 08:00 Safety checks: Items removed: yes. Door open/sign placed on door: yes. Family/friend dh3 present: no. Sitter present: Yes. 08:10 Urine collected: urinal, clear. dh3 08:14 Inserted saline lock: 20 gauge in right hand, using aseptic technique. dh3 08:15 Safety checks: Items removed: yes. Door open/sign placed on door: yes. Family/friend dh3 present: no. Sitter present: Yes. 08:17 Initial lab(s) drawn, by me, sent to lab. Inserted saline lock: 20 gauge in left hand, dh3 using aseptic technique. Blood collected. 08:30 Safety checks: Items removed: yes. Door open/sign placed on door: yes. Family/friend dh3 present: no. Sitter present: Yes. 08:37 Patient has correct armband on for positive identification. Placed in gown. Bed in low ph position. Call light in reach. Side rails up X 1. Door closed. Warm blanket given. Head of bed elevated. 08:45 Safety checks: Items removed: yes. Door open/sign placed on door: yes. Family/friend dh3 present: no. Sitter present: Yes. 09:00 Safety checks: Items removed: yes. Door open/sign placed on door: yes. Family/friend dh3 present: no. Sitter present: Yes. 09:15 Safety checks: Items removed: yes. Door open/sign placed on door: yes. Family/friend dh3 present: no. Sitter present: Yes. 09:30 Safety checks: Items removed: yes. Door open/sign placed on door: yes. Family/friend dh3 present: no. Sitter present: Yes. 09:45 Safety checks: Items removed: yes. Door open/sign placed on door: yes. Family/friend dh3 present: no. Sitter present: Yes. 10:00 Safety checks: Items removed: yes. Door open/sign placed on door: yes. Family/friend dh3 present: no. Sitter present: Yes. 10:06 Faxed Clinical's to [facility], [facility], [facility], [facility], [facility], [facility], [facility], [facility], [facility], [facility], [facility], and [facility] at this time. Initiated transfer at this time with [facility]. No psych beds at this time. 10:15 Safety checks: Items removed: yes. Door open/sign placed on door: yes. Family/friend dh3 present: no. Sitter present: Yes. 10:30 Safety checks: Items removed: yes. Door open/sign placed on door: yes. Family/friend dh3 present: no. Sitter present: Yes. 10:45 Safety checks: Items removed: yes. Door open/sign placed on door: yes. Family/friend dh3 present: no. Sitter present: Yes. 11:00 Safety checks: Items removed: yes. Door open/sign placed on door: yes. Family/friend dh3 present: no. Sitter present: Yes. 11:15 Safety checks: Items removed: yes. Door open/sign placed on door: yes. Family/friend dh3 present: no. Sitter present: Yes. 11:30 Safety checks: Items removed: yes. Door open/sign placed on door: yes. Family/friend dh3 present: no. Sitter present: Yes. 11:45 Safety checks: Items removed: yes. Door open/sign placed on door: yes. Family/friend dh3 present: no. Sitter present: Yes. 12:00 Safety checks: Items removed: yes. Door open/sign placed on door: yes. Family/friend dh3 present: no. Sitter present: Yes. 12:15 Safety checks: Items removed: yes. Door open/sign placed on door: yes. Family/friend dh3 present: no. Sitter present: Yes. 12:30 Safety checks: Items removed: yes. Door open/sign placed on door: yes. Family/friend dh3 present: no. Sitter present: Yes. 12:45 Safety checks: Items removed: yes. Door open/sign placed on door: yes. Family/friend dh3 present: no. Sitter present: Yes. 13:00 Safety checks: Items removed: yes. Door open/sign placed on door: yes. Family/friend dh3 present: no. Sitter present: Yes. 13:15 Safety checks: Items removed: yes. Door open/sign placed on door: yes. Family/friend dh3 present: no. Sitter present: Yes. 13:30 Pt put on the Waiting List at [facility] at this time. ms 13:30 Safety checks: Items removed: yes. Door open/sign placed on door: yes. Family/friend dh3 present: no. Sitter present: Yes. 13:45 Safety checks: Items removed: yes. Door open/sign placed on door: yes. Family/friend dh3 present: no. Sitter present: Yes. 14:00 Safety checks: Items removed: yes. Door open/sign placed on door: yes. Family/friend dh3 present: no. Sitter present: Yes. 14:15 Safety checks: Items removed: yes. Door open/sign placed on door: yes. Family/friend dh3 present: no. Sitter present: Yes. 14:30 Safety checks: Items removed: yes. Door open/sign placed on door: yes. Family/friend dh3 present: no. Sitter present: Yes. 14:45 Safety checks: Items removed: yes. Door open/sign placed on door: yes. Family/friend dh3 present: no. Sitter present: Yes. 15:00 Safety checks: Items removed: yes. Door open/sign placed on door: yes. Family/friend dh3 present: no. Sitter present: Yes. 15:15 Safety checks: Items removed: yes. Door open/sign placed on door: yes. Family/friend dh3 present: no. Sitter present: Yes. 15:30 Safety checks: Items removed: yes. Door open/sign placed on door: yes. Family/friend dh3 present: no. Sitter present: Yes. 15:30 IV discontinued, intact, bleeding controlled, Pressure dressing applied. dh3 15:45 Safety checks: Items removed: yes. Door open/sign placed on door: yes. Family/friend dh3 present: no. Sitter present: Yes. 15:58 No provider procedures requiring assistance completed. ph 16:00 Safety checks: Items removed: yes. Door open/sign placed on door: yes. Family/friend dh3 present: no. Sitter present: Yes. 16:15 Safety checks: Items removed: yes. Door open/sign placed on door: yes. Family/friend dh3 present: no. Sitter present: Yes. 16:30 Safety checks: Items removed: yes. Door open/sign placed on door: yes. Family/friend dh3 present: no. Sitter present: Yes. 16:45 Safety checks: Items removed: yes. Door open/sign placed on door: yes. Family/friend dh3 present: no. Sitter present: Yes. 17:00 Safety checks: Items removed: yes. Door open/sign placed on door: yes. Family/friend dh3 present: no. Sitter present: Yes. 17:15 Safety checks: Items removed: yes. Door open/sign placed on door: yes. Family/friend dh3 present: no. Sitter present: Yes. 17:30 Safety checks: Items removed: yes. Door open/sign placed on door: yes. Family/friend dh3 present: no. Sitter present: Yes. 17:45 Safety checks: Items removed: yes. Door open/sign placed on door: yes. Family/friend dh3 present: no. Sitter present: Yes. 18:00 Safety checks: Items removed: yes. Door open/sign placed on door: yes. Family/friend dh3 present: no. Sitter present: Yes. 18:15 Safety checks: Items removed: yes. Door open/sign placed on door: yes. Family/friend dh3 present: no. Sitter present: Yes. 18:30 Safety checks: Items removed: yes. Door open/sign placed on door: yes. Family/friend dh3 present: no. Sitter present: Yes. 18:45 Safety checks: Items removed: yes. Door open/sign placed on door: yes. Family/friend dh3 present: no. Sitter present: Yes. 19:00 Safety checks: Items removed: yes. Door open/sign placed on door: yes. Family/friend dh3 present: no. Sitter present: Yes. 19:15 Safety checks: Items removed: yes. Door open/sign placed on door: yes. Family/friend mw2 present: no. Sitter present: Yes. 19:30 Safety checks: Items removed: yes. Door open/sign placed on door: yes. Family/friend mw2 present: no. Sitter present: Yes. 19:45 Safety checks: Items removed: yes. Door open/sign placed on door: yes. Family/friend mw2 present: no. Sitter present: Yes. 20:00 Safety Checks: Personal items have been removed. The door is open or patient has been sr6 placed in a hallway bed/chair. Sitter present at this time. 20:00 Safety checks: Items removed: yes. Door open/sign placed on door: yes. Family/friend mw2 present: no. Sitter present: Yes. 20:15 Safety Checks: Personal items have been removed. The door is open or patient has been sr6 placed in a hallway bed/chair. Sitter present at this time. 20:30 Safety Checks: Personal items have been removed. The door is open or patient has been sr6 placed in a hallway bed/chair. Sitter present at this time. 20:45 Safety Checks: Personal items have been removed. The door is open or patient has been sr6 placed in a hallway bed/chair. There are no family/friend visitors at this time Sitter present at this time. 21:00 Safety Checks: Personal items have been removed. The door is open or patient has been sr6 placed in a hallway bed/chair. There are no family/friend visitors at this time Sitter present at this time. 21:15 Safety Checks: Personal items have been removed. The door is open or patient has been sr6 placed in a hallway bed/chair. There are no family/friend visitors at this time Sitter present at this time. 21:30 Safety Checks: Personal items have been removed. The door is open or patient has been sr6 placed in a hallway bed/chair. There are no family/friend visitors at this time Sitter present at this time. Other: pt asleep. 21:45 Safety Checks: Personal items have been removed. The door is open or patient has been sr6 placed in a hallway bed/chair. There are no family/friend visitors at this time Sitter present at this time. 22:00 Safety Checks: Personal items have been removed. The door is open or patient has been sr6 placed in a hallway bed/chair. There are no family/friend visitors at this time Sitter present at this time. 22:15 Safety Checks: Personal items have been removed. The door is open or patient has been sr6 placed in a hallway bed/chair. There are no family/friend visitors at this time Sitter present at this time. 22:30 Safety Checks: Personal items have been removed. The door is open or patient has been sr6 placed in a hallway bed/chair. There are no family/friend visitors at this time Sitter present at this time. 22:45 Safety Checks: Personal items have been removed. The door is open or patient has been sr6 placed in a hallway bed/chair. There are no family/friend visitors at this time Sitter present at this time. 23:00 Safety Checks: Personal items have been removed. The door is open or patient has been sr6 placed in a hallway bed/chair. There are no family/friend visitors at this time Sitter present at this time. 23:15 Safety Checks: Personal items have been removed. The door is open or patient has been sr6 placed in a hallway bed/chair. There are no family/friend visitors at this time Sitter present at this time. 23:30 Safety Checks: Personal items have been removed. The door is open or patient has been sr6 placed in a hallway bed/chair. There are no family/friend visitors at this time Sitter present at this time. 23:45 Safety Checks: Personal items have been removed. The door is open or patient has been sr6 placed in a hallway bed/chair. There are no family/friend visitors at this time Sitter present at this time. 08/15 00:00 Safety Checks: Personal items have been removed. The door is open or patient has been sr6 placed in a hallway bed/chair. There are no family/friend visitors at this time Sitter present at this time. 00:15 Safety Checks: Personal items have been removed. The door is open or patient has been sr6 placed in a hallway bed/chair. There are no family/friend visitors at this time Sitter present at this time. 00:30 Safety Checks: Personal items have been removed. The door is open or patient has been sr6 placed in a hallway bed/chair. There are no family/friend visitors at this time Sitter present at this time. 00:45 Safety Checks: Personal items have been removed. The door is open or patient has been sr6 placed in a hallway bed/chair. There are no family/friend visitors at this time Sitter present at this time. 01:00 Safety Checks: Personal items have been removed. The door is open or patient has been sr6 placed in a hallway bed/chair. There are no family/friend visitors at this time Sitter present at this time. 01:15 Safety Checks: Personal items have been removed. The door is open or patient has been jb4 placed in a hallway bed/chair. There are no family/friend visitors at this time Sitter present at this time. 01:30 Safety Checks: Personal items have been removed. The door is open or patient has been jb4 placed in a hallway bed/chair. There are no family/friend visitors at this time Sitter present at this time. 01:45 Safety Checks: Personal items have been removed. The door is open or patient has been jb4 placed in a hallway bed/chair. There are no family/friend visitors at this time Sitter present at this time. 02:00 Safety Checks: Personal items have been removed. The door is open or patient has been jb4 placed in a hallway bed/chair. There are no family/friend visitors at this time Sitter present at this time. 02:15 Safety Checks: Personal items have been removed. The door is open or patient has been sr6 placed in a hallway bed/chair. There are no family/friend visitors at this time Sitter present at this time. 02:30 Safety Checks: Personal items have been removed. The door is open or patient has been sr6 placed in a hallway bed/chair. There are no family/friend visitors at this time Sitter present at this time. 02:38 Attending Physician role handed off by Bhavin Richard MD rn 02:38 Robert Ferraro MD is Attending Physician. rn 02:45 Safety Checks: Personal items have been removed. The door is open or patient has been sr6 placed in a hallway bed/chair. There are no family/friend visitors at this time Sitter present at this time. 03:00 Safety Checks: Personal items have been removed. The door is open or patient has been sr6 placed in a hallway bed/chair. There are no family/friend visitors at this time Sitter present at this time. 03:15 Safety Checks: Personal items have been removed. The door is open or patient has been sr6 placed in a hallway bed/chair. There are no family/friend visitors at this time Sitter present at this time. 03:30 Safety Checks: Personal items have been removed. The door is open or patient has been sr6 placed in a hallway bed/chair. There are no family/friend visitors at this time Sitter present at this time. 03:45 Safety Checks: Personal items have been removed. The door is open or patient has been sr6 placed in a hallway bed/chair. There are no family/friend visitors at this time Sitter present at this time. 04:00 Safety Checks: Personal items have been removed. The door is open or patient has been sr6 placed in a hallway bed/chair. There are no family/friend visitors at this time Sitter present at this time. 04:15 Safety Checks: Personal items have been removed. The door is open or patient has been sr6 placed in a hallway bed/chair. There are no family/friend visitors at this time Sitter present at this time. 04:30 Safety Checks: Personal items have been removed. The door is open or patient has been sr6 placed in a hallway bed/chair. There are no family/friend visitors at this time Sitter present at this time. 04:45 Safety Checks: Personal items have been removed. The door is open or patient has been sr6 placed in a hallway bed/chair. There are no family/friend visitors at this time Sitter present at this time. 05:00 Safety Checks: Personal items have been removed. The door is open or patient has been sr6 placed in a hallway bed/chair. There are no family/friend visitors at this time Sitter present at this time. 05:35 IV discontinued, intact, bleeding controlled, Pressure dressing applied. ao Administered Medications: 08/14 10:30 Drug: Librium - chlordiazePOXIDE 50 mg Route: PO; iw 15:59 Follow up: Response: No adverse reaction ph 10:30 Drug: Lopressor (metoprolol TARTRATE) 50 mg Route: PO; iw 15:59 Follow up: Response: No adverse reaction; Blood pressure is lowered ph 10:45 Drug: NS 0.9% 500 ml Route: IV; Rate: bolus; Site: left hand; iw 11:30 Follow up: Response: No adverse reaction; IV Status: Completed infusion; IV Intake: ph 500ml 11:15 Drug: Banana Bag - (NS 0.9% 1000 ml, foLIC Acid 1 mg, Thiamine 100 mg, Multivitamin 1 iw amp) Route: IV; Rate: calculated rate; Site: left hand; 15:58 Follow up: Response: No adverse reaction; IV Status: Completed infusion; IV Intake: ph 1000ml 16:40 Drug: Librium - chlordiazePOXIDE 50 mg Route: PO; ph 18:45 Follow up: Response: No adverse reaction ph 16:40 Drug: Zofran 4 mg Route: IVP; Site: left hand; ph 18:44 Follow up: Response: No adverse reaction; Nausea is decreased ph 16:40 Drug: Pepcid 20 mg Route: IVP; Site: left hand; ph 18:44 Follow up: Response: No adverse reaction ph Intake: 11:30 IV: 500ml; Total: 500ml. ph 15:58 IV: 1000ml; Total: 1500ml. ph Outcome: 09:54 ER care complete, transfer ordered by MD. tang 08/15 05:05 Transferred by ground EMS to [facility]. ao Condition: stable Instructed on the need for transfer. 05:36 Patient left the ED. ao Signatures: Bhavin Richard MD MD kdr Martinez, Amelia as Williams, Irene, Marilee Ortega RN, ms, Roman, MD MD rn Calderon, Audri, RN RN aa5 Fely Flores RN RN ph Ortiz, Alex, RN RN Juan Coleman, RN RN 4 Liliane Xie 3 [facility] Marisela [place] 6 Corrections: (The following items were deleted from the chart) 08/14 07:54 07:53 BP 203 / 100; Pulse 92bpm; Resp 18bpm; Spontaneous; Pulse Ox 96% RA; Temp 98.2F aa5 Oral; aa5 08:32 08:32 Urine collected: urinal, clear 3 3 08:36 07:50 Safety checks: Items removed: yes. Door open/sign placed on door: yes. 3 Family/friend present: no. Sitter present: Yes. 3 10:38 09:45 Safety checks: Items removed: yes. Door open/sign placed on door: yes. dh3 Family/friend present: no. 3
[2018-08-14] MEDS ORDERED: METOPROLOL TAR 50 MG TAB ONE (10:41)
[2018-08-14] MEDS ORDERED: chlordiazePOXIDE HCl 25 MG CAP ONE ×2 (10:42→16:44)
[2018-08-14] MEDS ORDERED: NA CHLORIDE 0.9% 500 ML ONE (10:42)
[2018-08-14] MEDS ORDERED: NA CHLORIDE 0.9% 1,000 ML with FOLIC ACID 1 MG, THIAMINE HCL 100 MG, MULTIVITAMINS INJ ... IV SCH ×4 (11:00)
[2018-08-14 12:17] LABS: Blood Morphology Comment NOT SEEN (NOT SEEN); Platelet Estimate ADEQ
[2018-08-14] MEDS ORDERED: FAMOTIDINE 20 MG/2 ML VIAL IV ONE (16:44)
[2018-08-14] MEDS ORDERED: ONDANSETRON 4 MG/2 ML VIAL ONE (16:44)
== END 2018-08-15 05:36 ==
LOC: ER 07:43
DX: R45.851 Suicidal ideations (principal); F32.9 Major depressive disorder, single episode, unspecified; F10.129 Alcohol abuse with intoxication, unspecified; F10.19 Alcohol abuse with unspecified alcohol-induced disorder; Z88.0 Allergy status to penicillin; Z86.73 Personal history of transient ischemic attack (TIA), and cerebral infarction without residual deficits; I10 Essential (primary) hypertension
CPT/HCPCS: 36415; 80048; 80076; 80307; 80320; 80329; 81003; 85025; 85610; 85730; 96365; 96366; 96375; 99285; J2405; J3411; J7030